=== PATIENT | female | born 1990 | race African-American/Black ===

== ENCOUNTER 2016-08-24 14:25 | Emergency (ER) | payer MEDICARE, OTHER ==
[~2016-08-24] VITALS: Ht 167.6 cm; Wt 58.0 kg
[~2016-08-24 14:25] MED LIST: PRED10 PO; SULF500T9 PO; TYLE3 PO
[2016-08-24 14:27] VITALS: BP 133/90; PULSE 99; RESP 20; TEMP 98.3; O2SAT 97
--- NOTE | 2016-08-24 14:41 | PD ---
HPI Chief Complaint: Lump, Cyst, Hernia Time Seen by Provider: 14:35 Travel History International Travel<30 days: No Contact w/Intl Traveler<30days: No Traveled to known affect area: No History of Present Illness HPI 26 year old female presents to the buttocks. Symptoms started 4 days ago. Pain is a throbbing pain that is constant worse when sitting. She had a similar issue about 9 months ago. Denies any drainage, fevers or chills. She has no other complaints at this time. PFSH Past Medical History Anemia: Yes Arthritis: Yes (RA) Autoimmune Disease: Yes (RHEUMATOID ARTHRITIS) Diminished Hearing: No Integumentary: Yes (PSORIASIS) Immunizations Current: Yes LMP: 08/21/16 : 1 : 1 Social History Alcohol Use: No Tobacco Use: No Substance Use: No Allergies-Medications (Allergen,Severity, Reaction): Coded Allergies: No Known Allergies (Verified , 08/24/16) Reported Meds & Prescriptions Reported Meds & Active Scripts Active Ibuprofen 800 Mg Tab 800 Mg PO Q6HR PRN Bactrim DS (Sulfamethoxazole-Trimethoprim) 800-160 Mg Tab 1 Tab PO BID 10 Days Keflex (Cephalexin) 500 Mg Cap 500 Mg PO Q6H 10 Days Deltasone (Prednisone) 10 Mg Tab 10 Mg PO DAILY Reported Tylenol #3 (Acetaminophen/Codeine Phosphate) 300 Mg/30 Mg Tab 1 Tab PO Q4-6HPRN FOR PAIN Sulfazine (Sulfasalazine) 500 Mg Tab 500 Mg PO BID Review of Systems General / Constitutional: No: Fever, Chills Gastrointestinal: No: Nausea, Vomiting, Abdominal Pain Musculoskeletal: No: Pain Skin: Positive Other (soft tissue swelling, pain, denies drainage) Data Data Last Documented VS Vital Signs Date Time Temp Pulse Resp B/P Pulse Ox O2 Delivery O2 Flow Rate FiO2 08/24/16 14:27 98.3 99 20 133/90 97 Room Air Orders Wound Culture And Gram Stain (08/24/16 14:50) Lidocaine 1% Inj (50 Ml) (Xylocaine 1% I (08/24/16 15:00) MDM Scripts Ibuprofen 800 Mg [id number] Mg PO Q6HR PRN (PAIN) #30 TAB Ref 0 Prov:Izzy Foss JANITOR HELPER 08/24/16 Sulfamethoxazole-Trimethoprim (Bactrim DS)800-160 Mg Tab1 Tab PO BID 10 Days Ref 0 Prov:Izzy Foss 08/24/16 Cephalexin (Keflex)500 Mg [id number] Mg PO Q6H 10 Days Ref 0 Prov:Izzy Foss 08/24/16 Dannie Whaley Aug 24, 2016 14:41
--- NOTE | 2016-08-24 14:50 | PD ---
HPI Chief Complaint: Lump, Cyst, Hernia Time Seen by Provider: 14:50 Travel History International Travel<30 days: No Contact w/Intl Traveler<30days: No Traveled to known affect area: No History of Present Illness HPI 26-year-old female presents to the emergency Department with complaint of a pain to her mid upper buttocks 4 days. Pain is constant and throbbing and worse with sitting. She has similar symptoms about 9 months ago and was seen at [facility]. She says they cut open area and drained it. Denies fever, chills, nausea, vomiting. Has not taken any medications or treatments to alleviate her symptoms. No known relieving factors. She has no other medical complaints at this time. History of rheumatoid arthritis. No known allergies. No other modifying factors or associated signs and symptoms. PFSH Past Medical History Anemia: Yes Arthritis: Yes (RA) Autoimmune Disease: Yes (RHEUMATOID ARTHRITIS) Diminished Hearing: No Integumentary: Yes (PSORIASIS) Immunizations Current: Yes LMP: 08/21/16 : 1 : 1 Social History Alcohol Use: No Tobacco Use: No Substance Use: No Allergies-Medications (Allergen,Severity, Reaction): Coded Allergies: No Known Allergies (Verified , 08/24/16) Reported Meds & Prescriptions Reported Meds & Active Scripts Active Ibuprofen 800 Mg Tab 800 Mg PO Q6HR PRN Bactrim DS (Sulfamethoxazole-Trimethoprim) 800-160 Mg Tab 1 Tab PO BID 10 Days Keflex (Cephalexin) 500 Mg Cap 500 Mg PO Q6H 10 Days Deltasone (Prednisone) 10 Mg Tab 10 Mg PO DAILY Reported Tylenol #3 (Acetaminophen/Codeine Phosphate) 300 Mg/30 Mg Tab 1 Tab PO Q4-6HPRN FOR PAIN Sulfazine (Sulfasalazine) 500 Mg Tab 500 Mg PO BID Review of Systems Except as stated in HPI: all other systems reviewed are Neg Physical Exam Narrative GENERAL: Well-nourished, well-developed female patient, in no acute distress SKIN: There is an indurated area to the coccyx area which measures about 2 cm in diameter. It is fluctuant but there is no pointing or drainage. There is a zone of inflammation around it but no lymphangitis. HEAD: Atraumatic. Normocephalic. EYES: Pupils equal and round. No scleral icterus. No injection or drainage. ENT: Mucosa pink and moist. Airway patent. NECK: Trachea midline. CARDIOVASCULAR: Regular rate. RESPIRATORY: No accessory muscle use. GASTROINTESTINAL: Flat. MUSCULOSKELETAL: No obvious deformities. No clubbing. No cyanosis. No edema. NEUROLOGICAL: Awake and alert. Oriented 3. No obvious cranial nerve deficits. Motor grossly within normal limits. Normal speech. PSYCHIATRIC: Appropriate mood and affect; insight and judgment normal. Data Data Last Documented VS Vital Signs Date Time Temp Pulse Resp B/P Pulse Ox O2 Delivery O2 Flow Rate FiO2 08/24/16 14:27 98.3 99 20 133/90 97 Room Air Orders Wound Culture And Gram Stain (08/24/16 14:50) Lidocaine 1% Inj (50 Ml) (Xylocaine 1% I (08/24/16 15:00) [facility] Medical Decision Making Medical Screen Exam Complete: Yes Emergency Medical Condition: Yes Medical Record Reviewed: Yes Differential Diagnosis Infected cyst, abscess, Narrative Course 26-year-old female physical exam consistent with an infected pilonidal cyst. Patient is afebrile. She denies fever, chills, nausea, vomiting. See my procedure note for incision and drainage. Instructed patient to return to the emergency department or follow-up with primary care in 48 hours for packing removal.She verbalized understanding and agreement with treatment plan. Keflex , Bactrim, ibuprofen prescribed for home. Patient is medically cleared and stable for discharge. Discussed reasons to return to the emergency department. Instructed patient to follow up with primary care provider. Patient agrees with treatment plan. The patients vital signs are stable and the patient is stable for outpatient follow-up and treatment. Patient discharged home, stable and in no acute distress. Procedures Procedure Narrative INCISION AND DRAINAGE OF ABSCESS: The area was prepped and was sterilely draped. A subcutaneous wheal of 1 % Xylocaine with a total number 3 mL was used to anesthetize the area properly. A number 11 scalpel was used to make a 1 -cm incision across the area of the abscess. The abscess was drained, complex loculations were broken down, and irrigated with normal saline. Cultures were obtained. Quarter inch iodoform packing was placed in the wound. Sterile dressing applied. Patient advised to have packing removed in two days. Diagnosis Primary Impression: Infected pilonidal cyst Referrals: Primary Care Physician Patient Instructions: Abscess (ED), Abscess Follow-up (ED), Abscess Incision and Drainage (ED), General Instructions, Pilonidal Cyst (ED) Departure Forms: Tests/Procedures, Work Release Enter return to work date: Aug 27, 2016 Additional Instructions: Complete full course of antibiotics Warm compresses to the affected area Keep area clean and dry Ibuprofen or Tylenol as directed and as needed for pain and inflammation Follow-up with primary care provider Return to emergency department immediately with worsening of symptoms Med/Other Pt SpecificInfo: Prescription(s) given Scripts Ibuprofen 800 Mg [id number] Mg PO Q6HR PRN (PAIN) #30 TAB Ref 0 Prov:Izzy Foss 08/24/16 Sulfamethoxazole-Trimethoprim (Bactrim DS)800-160 Mg Tab1 Tab PO BID 10 Days Ref 0 Prov:Izzy Foss 08/24/16 Cephalexin (Keflex)500 Mg [id number] Mg PO Q6H 10 Days Ref 0 Prov:Izzy Foss 08/24/16 Disposition: 01 DISCHARGE HOME Condition: Stable Izzy Foss Aug 24, 2016 14:50
[2016-08-24] MEDS ORDERED: IBUP800T23 PO (14:53)
[2016-08-24] MEDS ORDERED: BACT800T5 PO (14:53)
[2016-08-24] MEDS ORDERED: CEPH-460 PO (14:53)
[2016-08-24] MEDS ORDERED: LIDOCAINE HCL 1% 50 ML VIAL INFIL ONE (15:00)
[2016-08-24] MEDS ORDERED: IBUPROFEN 800 MG TAB PO ONE (15:30)
== END 2016-08-24 15:46 | disposition home or self-care (01) ==
LOC: NEPB 14:25
DX: L05.01 Pilonidal cyst with abscess (principal); M06.9 Rheumatoid arthritis, unspecified; Z87.2 Personal history of diseases of the skin and subcutaneous tissue; Z86.2 Personal history of diseases of the blood and blood-forming organs and certain disorders involving the immune mechanism
CPT/HCPCS: 10061; 87070

== ENCOUNTER 2017-01-12 14:30 | Emergency (ER) | payer MEDICARE, OTHER ==
[~2017-01-12] VITALS: Ht 167.6 cm; Wt 59.0 kg
[~2017-01-12 14:30] MED LIST changes: +BACT800T5 PO; +CEPH-460 PO; +IBUP800T23 PO
[2017-01-12 14:31] VITALS: BP 122/77; PULSE 98; RESP 20; TEMP 98.8; O2SAT 98
--- NOTE | 2017-01-12 14:39 | PD ---
Physical Exam Time Seen by Provider: 14:33 Narrative 26yo F c/o abscess to L axillae for over a week. Denies fever, vomiting. Had abscess to R axillae that was I&D at [facility] last Sunday and she just finished Bactrim yesterday. At the time the abscess to L axillae was too small to be drained and was told the Bactrim may help. She does say the L axillae abscess is less red and sore from taking the Bactrim. Patient seen in triage. VS reviewed. Awaiting bed placement. Data Data Last Documented VS Vital Signs Date Time Temp Pulse Resp B/P Pulse Ox O2 Delivery O2 Flow Rate FiO2 01/12/17 14:31 98.8 98 20 122/77 98 Room Air MDM Supervised Visit with JAMES: Izzy Suarez Jan 12, 2017 14:39
[2017-01-12] MEDS ORDERED: LIDOCAINE 1%/EPINEPHrine 1:100,000 SOLN 20 ML VIAL INFIL ONE (14:45)
--- NOTE | 2017-01-12 14:48 | PD ---
HPI Chief Complaint: Skin Problem Time Seen by Provider: 14:44 Travel History International Travel<30 days: No Contact w/Intl Traveler<30days: No Traveled to known affect area: No History of Present Illness HPI 26-year-old female presents to the emergency department for evaluation of left axillary abscess for 5 days. Patient states that 10 days ago she was seen at [facility] for a right axillary abscess incision and drainage and was placed on Bactrim for 7 days. States that at that time she had a very small firm lump in her left axilla that she had hoped would respond to the antibiotics. States that her left axilla continued to get larger and more fluctuant despite taking the antibiotics however states it is less painful. States that her right axillary abscess has completely resolved. She denies any fever, chills, nausea, vomiting, discharge or drainage, red streaks. PFSH Past Medical History Anemia: Yes Arthritis: Yes (RA) Autoimmune Disease: Yes (RHEUMATOID ARTHRITIS) Diminished Hearing: No Integumentary: Yes (PSORIASIS) Immunizations Current: Yes ?: Not : 1 : 1 Social History Alcohol Use: No Tobacco Use: No Substance Use: No Allergies-Medications (Allergen,Severity, Reaction): Coded Allergies: No Known Allergies (Verified , 01/12/17) Reported Meds & Prescriptions Reported Meds & Active Scripts Active Clindamycin (Clindamycin HCl) 300 Mg Cap 300 Mg PO TID 10 Days Ibuprofen 800 Mg Tab 800 Mg PO Q6HR PRN Bactrim DS (Sulfamethoxazole-Trimethoprim) 800-160 Mg Tab 1 Tab PO BID 10 Days Keflex (Cephalexin) 500 Mg Cap 500 Mg PO Q6H 10 Days Deltasone (Prednisone) 10 Mg Tab 10 Mg PO DAILY Reported Tylenol #3 (Acetaminophen/Codeine Phosphate) 300 Mg/30 Mg Tab 1 Tab PO Q4-6HPRN FOR PAIN Sulfazine (Sulfasalazine) 500 Mg Tab 500 Mg PO BID Review of Systems Except as stated in HPI: all other systems reviewed are Neg Physical Exam Narrative GENERAL: Well-nourished and well-developed female patient in no acute distress who is nontoxic appearing. SKIN: Warm and dry. 2.5 cm raised fluctuant mass to the left axilla, mild erythema. No surrounding erythema or warmth. No lymphangitis. HEAD: Normocephalic and atraumatic. EYES: No injection, drainage, or hyphema noted. PERRLA. EOMI. ENT: No nasal drainage noted. Oropharynx is clear. NECK: Supple and the trachea is midline. CARDIOVASCULAR: Regular rate and rhythm. RESPIRATORY: Breath sounds are equal bilaterally with no accessory muscle use, wheezing, rhonchi, or crackles. MUSCULOSKELETAL: No obvious deformities, swelling, cyanosis, or ecchymosis is present throughout the upper and lower extremities. Patient has full range of motion without any signs of neurovascular compromise. NEUROLOGICAL: Awake, alert, and oriented. Normal speech and gait. Cranial nerves are grossly intact. Data Data Last Documented VS Vital Signs Date Time Temp Pulse Resp B/P Pulse Ox O2 Delivery O2 Flow Rate FiO2 01/12/17 14:31 98.8 98 20 122/77 98 Room Air Orders Wound Culture And Gram Stain (01/12/17 14:43) Lidocai-Epi 1%-1:100,000 Inj (Xylocaine- (01/12/17 14:45) MDM Medical Decision Making Medical Screen Exam Complete: Yes Emergency Medical Condition: Yes Differential Diagnosis Simple abscess versus cellulitis versus cyst versus folliculitis Narrative Course 26-year-old female presents to the emergency department for evaluation of left axillary abscess. Patient is afebrile, vital signs are stable. She was recently on Bactrim for a right axillary abscess status post I&D. Left axillary abscess will have I&D performed today, see procedure narrative. Patient will be discharged with prescription for clindamycin. Discussed proper wound care techniques. Advised to have packing removed in 2 days. Patient verbalizes understanding and agreement with treatment plan. Procedures Procedure Narrative After the risks and benefits were discussed the following procedure was performed: INCISION AND DRAINAGE OF ABSCESS: The area was prepped and was sterilely draped. A subcutaneous wheal of 1 % Xylocaine with a total number 4 mL was used to anesthetize the area. The area was properly anesthetized. A number 11 scalpel was used to make a 1 -cm incision across the area of the abscess. Purulence was expelled. Cultures were obtained. The abscess was drained an irrigated with normal saline. Quarter inch iodoform packing was placed in the wound. Sterile dressing applied. Patient advised to have packing removed in two days. Diagnosis Primary Impression: Abscess of left axilla Referrals: Primary Care Physician Patient Instructions: Abscess (ED), Abscess Incision and Drainage (ED), General Instructions Additional Instructions: Apply warm compresses. Take medication as prescribed with food and a full glass of water. Follow-up with your Primary Care Physician. Return to the ED for any acute worsening of symptoms. Med/Other Pt SpecificInfo: Prescription(s) given Scripts Clindamycin 300 Mg [id number] Mg PO TID 10 Days Ref 0 Prov:Harvinder Foster MD 01/12/17 Disposition: 01 DISCHARGE HOME Condition: Stable Izzy Delacruz Jan 12, 2017 14:48
[2017-01-12] MEDS ORDERED: CLIN1CAP6 PO (14:49)
[2017-01-12] MEDS ORDERED: PRED10 PO (15:29)
== END 2017-01-12 15:39 | disposition home or self-care (01) ==
LOC: NEPK 14:30
DX: L02.412 Cutaneous abscess of left axilla (principal); D64.9 Anemia, unspecified; M06.9 Rheumatoid arthritis, unspecified; Z79.899 Other long term (current) drug therapy; Z79.82 Long term (current) use of aspirin
CPT/HCPCS: 10061; 86403; 87070; 87186

== ENCOUNTER 2017-02-06 14:43 | Emergency (ER) | payer MEDICARE, OTHER ==
[~2017-02-06] VITALS: Ht 167.6 cm; Wt 60.0 kg
[~2017-02-06 14:43] MED LIST changes: -BACT800T5 PO; -CEPH-460 PO; +CLIN1CAP6 PO; -IBUP800T23 PO; -SULF500T9 PO; -TYLE3 PO
[2017-02-06 14:45] VITALS: BP 120/78; PULSE 83; RESP 18; TEMP 99; O2SAT 100
== END 2017-02-06 17:22 | disposition left against medical advice (07) ==
LOC: NED 14:43
DX: R10.9 Unspecified abdominal pain (principal); N93.9 Abnormal uterine and vaginal bleeding, unspecified; Z53.21 Procedure and treatment not carried out due to patient leaving prior to being seen by health care provider
CPT/HCPCS: 99281

== ENCOUNTER → 2017-03-14 | Outpatient (CLI) | payer BC, MEDICARE, OTHER ==
--- NOTE | 2017-03-15 12:59 | EKG ---
Date Performed: 03/14/2017 Time Performed: 12:50:01 PTAGE: 26 years EKG: Sinus rhythm NORMAL ECG PREVIOUS TRACING : 06/23/2003 19.17 DOCTOR: Kevin Jarvis Interpretating Date/Time 03/15/2017 12:51:24
== END ==
LOC: CPRE 12:17
PROVIDERS: ATTEND Obstetrics & Gynecology
DX: Z01.810 Encounter for preprocedural cardiovascular examination (principal); Z01.812 Encounter for preprocedural laboratory examination; N92.0 Excessive and frequent menstruation with regular cycle; N94.6 Dysmenorrhea, unspecified; R19.09 Other intra-abdominal and pelvic swelling, mass and lump
CPT/HCPCS: 93005

== ENCOUNTER → 2017-03-16 | Day surgery (SDC) | payer BC, MEDICARE, OTHER ==
[~2017-03-16] VITALS: Ht 167.6 cm; Wt 56.7 kg
[~2017-03-16] MED LIST changes: +ACETAMINOPHEN 1000 MG/100 ML 100 ML IV ONE; +ACETAMINOPHEN 1000 MG/100 ML VIAL IV SCH; +APREPITANT 40 MG CAP ONE; +BUPIVACAINE/EPINEPHRINE 0.25% 50 ML VIAL ONE; +CHLORHEXIDINE GLUCONATE 2 % 1 PACK (2 CLOTHS) TOPICAL PRN; -CLIN1CAP6 PO; +DO NOT ADM ANY ANTICOAGULANT DRUGS PRN; +FAMOTIDINE 20 MG/2 ML VIAL ONE; +INSULIN HUMAN REGULAR 1,000 UNITS/10 ML VIAL SQ PRN; +KETOROLAC TROMETHAMINE 60 MG/2 ML (IM) VIAL IM ONE; +LACTATED RINGER'S 1000 ML IV PRN; +METOCLOPRAMIDE HCL 10 MG/2 ML VIAL IV PRN; +METOPROLOL TARTRATE 25 MG TAB PO PRN; +MIDAZOLAM HCL 2 MG/2 ML VIAL IV ONE; +NEOSTIGMINE 3 MG/3 ML SYR IV ONE; +ONDANSETRON HCL 4 MG/2 ML VIAL IV PUSH ONE; +POVIDONE IODINE 5% (ANTISEPSIS KIT) 4 APPLICATIONS EACH NARE PRN; +PROPOFOL 200 MG/20 ML AMP IV ONE; +SODIUM CHLORID 0.9% 500 ML IV PRN; +ceFAZolin 1,000 MG/NS 100 ML IV SCH; +oxyCODONE/ACETAMINOPHEN 5 MG/325 MG TAB PO PRN
--- NOTE | 2017-03-16 08:35 | MH ---
cc: EMERITA ELDER MD DATE OF ADMISSION 03/16/2017 DATE OF 05/04/1994 ADMISSION DIAGNOSIS Menorrhagia, dysmenorrhea with adnexal masses. HISTORY OF PRESENT ILLNESS The patient is a 26-year-old single black female para 0-0-1-0, began her cycle on 02/05/2017 early and began passing large clots of blood per vagina with excessively dysmenorrhea. Her laboratory studies included a normal CBC and beta titer was negative for . A vaginal ultrasound showed a normal-appearing uterus with ovarian mass on the midline. In view of these findings she is now admitted for surgical evaluation. PAST MEDICAL HISTORY Previous surgery none. MEDICATIONS 1. Vitamins. 2. Prednisone. ALLERGIES None. TRANSFUSIONS None. PAST MEDICAL ILLNESS History of rheumatoid arthritis age 15 with psoriasis age 18. OBSTETRICAL HISTORY One ETP age 19. SOCIAL HISTORY She works at [employer]. Alcohol occasional. Tobacco none. Drugs none. FAMILY HISTORY Noncontributory. PHYSICAL EXAMINATION GENERAL: A well-nourished, well-developed black female. VITAL SIGNS: Stable. HEENT: Exam is normal. CHEST: Clear HEART: Regular rate. BREASTS: The breasts are symmetrical. ABDOMEN: Benign. PELVIC EXAMINATION: Normal external genitalia and BUS. Vagina is normal. Cervix normal. Uterus normal size, shape. Adnexa nonpalpable. ASSESSMENT/PLAN As above. She is now admitted for an outpatient hysteroscopy, D&C and laparoscopy. While in the office I explained the procedures, the risks and benefits, complications and possible need for additional surgery pending findings. Emerita Elder MD JAW/EO /5:33 PM /8:27 AM
[2017-03-16 09:50] VITALS: BP 115/68; PULSE 55; RESP 18; TEMP 97; O2SAT 99
--- NOTE | 2017-03-16 17:16 | MP ---
cc: EMERITA ELDER DATE OF SURGERY 03/16/17 PREOPERATIVE DIAGNOSIS Menorrhagia, dysmenorrhea with bilateral adnexal masses. POSTOPERATIVE DIAGNOSIS Menorrhagia, dysmenorrhea with right peritubal mass, bilateral adnexal adhesions, bilateral hydrosalpinx and pelvic adhesions. PROCEDURE Hysteroscopy, D&C and diagnostic laparoscopy. ANESTHESIA General ET SURGEON Mag Elder MD METER SHOP SUPERVISOR Gisselle Alba ESTIMATED BLOOD LOSS Less than 20 mL FLUIDS 0.5 liter crystalloid. OBJECTIVE FINDINGS Following induction of adequate general endotracheal anesthesia, the patient was prepped and draped supine on the operating table dorsal lithotomy position usual sterile fashion with the bladder being drained via catheterization. Exam under anesthesia revealed a normal size and shape mid retroverted uterus with a cystic mass on the right. Heavy weighted speculum was placed in the posterior fornix of the vagina. The anterior lip of the cervix grasped with single tooth tenaculum. Cervix and uterus sounded to 8 cm. Cervix dilated with a #18 Hanks dilator. Hysteroscope was passed, revealed normal endocervix, normal endometrium. Hysteroscope was withdrawn. Endocervical curetting was obtained with a small serrated curette and endometrium with a small sharp curette. HUMI was then placed. The other vaginal instruments were removed. Regulatory Affairs Portfolio Leader's gloves were changed. The abdomen was opened through a 0.5 cm umbilical incision. A five port was placed followed by laparoscope attached to a cam. A second five in left lower quadrant. Pelvic contents revealed a uterus that was normal, size, shape, retroverted. There were adhesions of the sigmoid to the fundus posteriorly. The left ovary was slightly cystic. There was a calcified appearing mass at the end of the left tube about 2 cm. The tube was clubbed, had a salpinx. On the right, the ovary was more normal in size. Also that tube showed hydrosalpinx and was closed. The appendix was normal. Liver edge was normal. The inspection of the port sites no bleeding. Scope was now removed, gas allowed to escape. Each port site was injected with 5 mL of Marcaine 0.25% with epinephrine and then closed with subcuticular Monocryl. The HUMI removed vagina. The patient was taken out of stirrups. She was awaken and taken to the recovery room in good condition. MD KARIE Archer /8:11 AM /5:05 PM SHANT
== END | disposition home or self-care (01) ==
LOC: HSDC 05:38
PROVIDERS: ATTEND Obstetrics & Gynecology
DX: N92.0 Excessive and frequent menstruation with regular cycle (principal); N94.6 Dysmenorrhea, unspecified; N70.11 Chronic salpingitis; M06.9 Rheumatoid arthritis, unspecified; L40.9 Psoriasis, unspecified; Z01.810 Encounter for preprocedural cardiovascular examination; Z01.818 Encounter for other preprocedural examination
CPT/HCPCS: 00952; 49320; 58558; 88305; 93005; J0131; J0690; J1885; J2250; J2405; J2710; J3010; J7120; J8501

== ENCOUNTER 2017-05-28 09:22 | Emergency (ER) | payer MEDICARE, BC, MEDICAID ==
[~2017-05-28] VITALS: Ht 167.6 cm; Wt 57.0 kg
[~2017-05-28 09:22] MED LIST changes: -ACETAMINOPHEN 1000 MG/100 ML 100 ML IV ONE; -ACETAMINOPHEN 1000 MG/100 ML VIAL IV SCH; -APREPITANT 40 MG CAP ONE; -BUPIVACAINE/EPINEPHRINE 0.25% 50 ML VIAL ONE; -CHLORHEXIDINE GLUCONATE 2 % 1 PACK (2 CLOTHS) TOPICAL PRN; -DO NOT ADM ANY ANTICOAGULANT DRUGS PRN; -FAMOTIDINE 20 MG/2 ML VIAL ONE; -INSULIN HUMAN REGULAR 1,000 UNITS/10 ML VIAL SQ PRN; -KETOROLAC TROMETHAMINE 60 MG/2 ML (IM) VIAL IM ONE; -LACTATED RINGER'S 1000 ML IV PRN; -METOCLOPRAMIDE HCL 10 MG/2 ML VIAL IV PRN; -METOPROLOL TARTRATE 25 MG TAB PO PRN; -MIDAZOLAM HCL 2 MG/2 ML VIAL IV ONE; -NEOSTIGMINE 3 MG/3 ML SYR IV ONE; -ONDANSETRON HCL 4 MG/2 ML VIAL IV PUSH ONE; -POVIDONE IODINE 5% (ANTISEPSIS KIT) 4 APPLICATIONS EACH NARE PRN; -PROPOFOL 200 MG/20 ML AMP IV ONE; -SODIUM CHLORID 0.9% 500 ML IV PRN; -ceFAZolin 1,000 MG/NS 100 ML IV SCH; -oxyCODONE/ACETAMINOPHEN 5 MG/325 MG TAB PO PRN
[2017-05-28 09:23] VITALS: BP 129/64; PULSE 82; RESP 18; TEMP 98.8; O2SAT 99
[2017-05-28 09:40] VITALS: BP 109/74; PULSE 79; RESP 15; TEMP 98.5; O2SAT 99
[2017-05-28] MEDS ORDERED: BACT800T5 PO (09:41)
[2017-05-28] MEDS ORDERED: CEPH-460 PO (09:41)
[2017-05-28 09:42] VITALS: BP 109/74; PULSE 79; RESP 15; TEMP 98.5; O2SAT 99
--- NOTE | 2017-05-28 09:46 | PD ---
HPI Chief Complaint: abscess Time Seen by Provider: 09:36 Travel History International Travel<30 days: No Contact w/Intl Traveler<30days: No Traveled to known affect area: No History of Present Illness HPI 27-year-old Afro-Mexican female presents the emergency department with a tender swollen area in the right upper medial buttock over the past 3 days. Patient states she has a history of pilonidal cysts in the past. She denies fever, chills, or spontaneous drainage. She is requesting a trial of antibiotics rather than I&D. Patient is currently 6 out of 10. She has had I& D in the past and would not like to do that today. She has a history of MRSA. [facility] Past Medical History Anemia: Yes Arthritis: Yes (RA) Autoimmune Disease: Yes (RHEUMATOID ARTHRITIS) Cancer: No Cardiovascular Problems: No Diabetes: No Diminished Hearing: No Endocrine: No Genitourinary: No Hepatitis: No Hiatal Hernia: No Immune Disorder: Yes (RA) Musculoskeletal: Yes (RA) Neurologic: No Psychiatric: No Reproductive: No Respiratory: No Integumentary: Yes (PSORIASIS) Immunizations Current: Yes Thyroid Disease: No : 1 : 1 Past Surgical History AICD: No Joint Replacement: No Pacemaker: No Social History Alcohol Use: No Tobacco Use: No Substance Use: No Allergies-Medications (Allergen,Severity, Reaction): Coded Allergies: *MDRO Multi-Drug Resistant Organism (Verified Adverse Reaction, Unknown, ) MRSA (arm) 01/12/17 Reported Meds & Prescriptions Reported Meds & Active Scripts Active Reported Prednisone 10 Mg Tab 5 Mg PO DAILY Review of Systems Except as stated in HPI: all other systems reviewed are Neg General / Constitutional: No: Fever Eyes: No: Visual changes HENT: No: Headaches Cardiovascular: No: Chest Pain or Discomfort Respiratory: No: Shortness of Breath Gastrointestinal: No: Abdominal Pain Genitourinary: No: Dysuria Musculoskeletal: No: Pain Skin: Positive Lesions (early abscess. See history of present illness), No Rash Neurologic: No: Weakness Psychiatric: No: Depression Endocrine: No: Polydipsia Hematologic/Lymphatic: No: Easy Bruising Physical Exam Narrative GENERAL: Patient is in no acute distress. Ambulatory to the room. SKIN: Warm and dry. Normal Color. Normal turgor. Patient's buttock region is examined with nursing staff in room. Patient has a small tender indurated region to the right upper medial buttock without erythema or pointing. HEAD: Atraumatic. Normocephalic. EYES: Pupils equal and round. No scleral icterus. No injection or drainage. ENT: No nasal bleeding or discharge. Mucous membranes pink and moist. Pharynx is clear. Airway is patent. NECK: Trachea midline. Supple. VASCULAR: Regular rate and rhythm. No murmurs gallops or rubs RESPIRATORY: No accessory muscle use. Clear to auscultation. Breath sounds equal bilaterally. MUSCULOSKELETAL: Extremities without clubbing, cyanosis, or edema. No obvious deformities. NEUROLOGICAL: Awake and alert. No obvious cranial nerve deficits. Motor grossly within normal limits. Five out of 5 muscle strength in the arms and legs. Normal speech. PSYCHIATRIC: Appropriate mood and affect; insight and judgment normal. Data Data Last Documented VS Vital Signs Date Time Temp Pulse Resp B/P (MAP) Pulse Ox O2 Delivery O2 Flow Rate FiO2 05/28/17 09:23 98.8 82 18 129/64 (85) 99 MDM Medical Decision Making Medical Screen Exam Complete: Yes Emergency Medical Condition: Yes Differential Diagnosis Pilonidal cyst. Cellulitis. Early abscess. Narrative Course Discussed treatment options with the patient including I&D versus oral antibiotics and patient was adamant about just antibiotic treatment. Patient will be given Bactrim DS twice a day 7 days. Patient also given Keflex 500 mg 3 times a day 7 days. Patient can take [id number] ibuprofen and Tylenol as needed. Patient is recommended to use hot compresses to the area follow up with symptoms are not improving or worsening as needed. Diagnosis Primary Impression: Abscess of right buttock Referrals: Primary Care Physician Patient Instructions: Cellulitis (ED) Additional Instructions: Discussed treatment options with the patient including I&D versus oral antibiotics and patient was adamant about just antibiotic treatment. Patient will be given Bactrim DS twice a day 7 days. Patient also given Keflex 500 mg 3 times a day 7 days. Patient can take [id number] ibuprofen and Tylenol as needed. Patient is recommended to use hot compresses to the area follow up with symptoms are not improving or worsening as needed. Med/Other Pt SpecificInfo: Prescription(s) given Scripts Sulfamethoxazole-Trimethoprim (Bactrim DS) 800-160 Mg Tab 1 TAB PO BID for Infection, #14 TAB 0 Refills Prov: Emily Peoples MD 05/28/17 Cephalexin (Keflex) 500 Mg Capsule 500 MG PO Q8H for Infection for 7 Days, #21 CAP 0 Refills Prov: Emily Peoples MD 05/28/17 Disposition: 01 DISCHARGE HOME Condition: Stable Francisco Dominique May 28, 2017 09:46
== END 2017-05-28 10:03 | disposition home or self-care (01) ==
LOC: NEPD 09:22
DX: L02.31 Cutaneous abscess of buttock (principal); D64.9 Anemia, unspecified; M06.9 Rheumatoid arthritis, unspecified; Z79.899 Other long term (current) drug therapy
CPT/HCPCS: 99284

== ENCOUNTER 2017-06-01 15:29 | Emergency (ER) | payer MEDICARE, BC ==
[~2017-06-01] VITALS: Ht 167.6 cm; Wt 60.0 kg
[2017-06-01 15:31] VITALS: BP 126/58; PULSE 79; RESP 14; TEMP 98.9; O2SAT 100
--- NOTE | 2017-06-01 16:10 | PD ---
HPI Chief Complaint: Dizziness Time Seen by Provider: 16:00 Travel History International Travel<30 days: No Contact w/Intl Traveler<30days: No Traveled to known affect area: No History of Present Illness HPI 27-year-old female presents to emergency department complaining of lightheadedness upon standing. States that this is occurred multiple times this year with occasional loss of consciousness that lasted less than 10 seconds. Patient states that she has never been injured as a result of these falls but is concerned this is a serious condition. Her symptoms occur upon standing it lasts for a couple seconds and go away. Patient states that her lightheadedness is not exacerbated by movement of the head. Patient states she works at [employer] and has worked more than normal recently. Patient has a history of rheumatoid arthritis and is taking prednisone daily. She is not been on methotrexate for approximately one year because she has been trying to conceive with her significant other. Patient states she was here approximately one week ago for an abscess on her buttocks and received antibiotic. Patient otherwise denies recent illness. Patient states that she eats and drinks "normally". Denies fever, chills, chest pain, shortness of breath, cough, visual changes, nausea, vomiting, diarrhea. PFSH Past Medical History Anemia: Yes Arthritis: Yes (RA) Autoimmune Disease: Yes (RHEUMATOID ARTHRITIS) Cancer: No Cardiovascular Problems: No Diabetes: No Diminished Hearing: No Endocrine: No Genitourinary: No Hepatitis: No Hiatal Hernia: No Immune Disorder: Yes (RA) Musculoskeletal: Yes (RA) Neurologic: No Psychiatric: No Reproductive: No Respiratory: No Integumentary: Yes (PSORIASIS) Immunizations Current: Yes Thyroid Disease: No ?: Not LMP: 05/26/17 : 1 : 1 Dilation and Curettage (D&C): Yes Past Surgical History AICD: No Joint Replacement: No Pacemaker: No Social History Alcohol Use: No Tobacco Use: No Substance Use: No Allergies-Medications (Allergen,Severity, Reaction): Coded Allergies: *MDRO Multi-Drug Resistant Organism (Verified Adverse Reaction, Unknown, 05/28/17) MRSA (arm) 01/12/17 Reported Meds & Prescriptions Reported Meds & Active Scripts Active Reported Prednisone 10 Mg Tab 5 Mg PO DAILY Review of Systems Except as stated in HPI: all other systems reviewed are Neg Physical Exam Narrative GENERAL: Well-developed well-nourished in no apparent distress, and her [employer] uniform SKIN: Focused skin assessment warm/dry. HEAD: Atraumatic. Normocephalic. EYES: Pupils equal and round. No scleral icterus. No injection or drainage. EOMI. no nystagmus ENT: No nasal bleeding or discharge. Mucous membranes pink and moist. Tympanic membranes intact nonbulging nonerythematous NECK: Trachea midline. No JVD. No lymphadenopathy CARDIOVASCULAR: Regular rate and rhythm. No murmur appreciated. RESPIRATORY: No accessory muscle use. Clear to auscultation. Breath sounds equal bilaterally. GASTROINTESTINAL: Abdomen soft, non-tender, nondistended. MUSCULOSKELETAL: No obvious deformities. No clubbing. No cyanosis. No edema. NEUROLOGICAL: Awake and alert. No obvious cranial nerve deficits. Motor grossly within normal limits. Normal speech. Cerebellar movements intact. PSYCHIATRIC: Appropriate mood and affect; insight and judgment normal. Data Data Last Documented VS Vital Signs Date Time Temp Pulse Resp B/P (MAP) Pulse Ox O2 Delivery O2 Flow Rate FiO2 06/01/17 18:00 06/01/17 16:15 77 15 85 15 06/01/17 15:31 98.9 100 Orders Orders Ed Urine Pregnancytest Poc (06/01/17 16:10) Urinalysis - C+S If Indicated (06/01/17 16:10) Orthostatic Vital Signs (06/01/17 16:10) Complete Blood Count With Diff (06/01/17 16:28) Blood Glucose (06/01/17 16:28) Ed Discharge Order (06/01/17 17:37) Labs Laboratory Tests Test 06/01/17 16:30 06/01/17 16:35 Urine Color LIGHT-YELLOW Urine Turbidity CLEAR Urine pH 6.0 Urine Specific Pierce 1.007 Urine Protein NEG mg/dL Urine Glucose (UA) NEG mg/dL Urine Ketones NEG mg/dL Urine Occult Blood NEG Urine Nitrite NEG Urine Bilirubin NEG Urine Urobilinogen LESS THAN 2.0 MG/DL Urine Leukocyte Esterase TRACE Urine WBC 1 /hpf Urine Squamous Epithelial Cells 3 /hpf Microscopic Urinalysis Comment CULT NOT INDICATED White Blood Count 15.5 TH/MM3 Red Blood Count 4.64 MIL/MM3 Hemoglobin 12.4 GM/DL Hematocrit 38.8 % Mean Corpuscular Volume 83.6 FL Mean Corpuscular Hemoglobin 26.7 PG Mean Corpuscular Hemoglobin Concent 32.0 % Red Cell Distribution Width 16.0 % Platelet Count 205 TH/MM3 Mean Platelet Volume 9.6 FL Neutrophils (%) (Auto) 75.3 % Lymphocytes (%) (Auto) 18.1 % Monocytes (%) (Auto) 6.0 % Eosinophils (%) (Auto) 0.2 % Basophils (%) (Auto) 0.4 % Neutrophils # (Auto) 11.7 TH/MM3 Lymphocytes # (Auto) 2.8 TH/MM3 Monocytes # (Auto) 0.9 TH/MM3 Eosinophils # (Auto) 0.0 TH/MM3 Basophils # (Auto) 0.1 TH/MM3 CBC Comment DIFF FINAL Differential Comment MDM Medical Decision Making Medical Screen Exam Complete: Yes Emergency Medical Condition: Yes Differential Diagnosis Dehydration versus unspecified dizziness versus poor nutrition Narrative Course 27-year-old female presents to emergency department complaining of lightheadedness upon standing. States that this is occurred multiple times this year with occasional loss of consciousness that lasted less than 10 seconds. Patient states that she has never been injured as a result of these falls but is concerned this is a serious condition. Her symptoms occur upon standing it lasts for a couple seconds and go away. Patient states that her lightheadedness is not exacerbated by movement of the head. Patient states she works at [employer] and has worked more than normal recently. Patient has a history of rheumatoid arthritis and is taking prednisone daily. She is not been on methotrexate for approximately one year because she has been trying to conceive with her significant other. Patient states she was here approximately one week ago for an abscess on her buttocks and received antibiotic. Patient otherwise denies recent illness. Patient states that she eats and drinks "normally". Denies fever, chills, chest pain, shortness of breath, cough, visual changes, nausea, vomiting, diarrhea. Vital signs stable Physical exam essentially unremarkable. WBCs elevated. Patient takes prednisone daily, chronic history of rheumatoid arthritis. No anemia present today. Urine-noncontributory Orthostatic-negative [id number] blood glucose 78. Given Gatorade. Successful PO Challenge. Pt feels better. Advised patient to follow up with her primary care physician regarding this condition. Pt understands and will comply. Diagnosis Primary Impression: Positional lightheadedness Referrals: Primary Care Physician Additional Instructions: Ensure adequate fluid intake and nutritious diet Follow-up with her regular physician within 2-3 days. Disposition: 01 DISCHARGE HOME Condition: Stable Blanka Barrientos Jun 01, 2017 16:10
[2017-06-01 16:15] VITALS: BP_SYST 118; BP_SYST 122; BP_DIAS 76; BP_DIAS 87; RESP 15
--- NOTE | 2017-06-01 16:30 | PD ---
Physical Exam Date Seen by Provider: Jun 01, 2017 Time Seen by Provider: 16:20 Narrative This patient presents complaining with frequent dizzy spells. Her dizzy spells tend to occur when she stands. She reports a history of rheumatoid arthritis. She states that she sees her doctor every 3 months but has not mentioned the dizzy spells to her doctor. Data Data Last Documented VS Vital Signs Date Time Temp Pulse Resp B/P (MAP) Pulse Ox O2 Delivery O2 Flow Rate FiO2 06/01/17 15:31 98.9 79 14 126/58 (80) 100 Orders Orders Ed Urine Pregnancytest Poc (06/01/17 16:10) Urinalysis - C+S If Indicated (06/01/17 16:10) Orthostatic Vital Signs (06/01/17 16:10) MDM Supervised Visit with JAMES: Yes Narrative Course I, Dr. Bryson, have reviewed the advance practice practitioner's documentation and am in agreement, met with the patient face to face, made the diagnosis, and the medical decision making was done by me. *My assessment and Findings: This patient ambulates without difficulty. She is smiling and in no distress. Evaluation has been discussed with IMMANUEL Hernandez. Please see Blanka Barrientos PA-C's note for further details, lab and radiology results, final diagnosis and disposition. Referrals: Primary Care Physician Additional Instruction: Ensure adequate fluid intake and nutritious diet Follow-up with her regular physician within 2-3 days. Disposition: 01 DISCHARGE HOME Condition: Stable Maritza Bryson MD Jun 01, 2017 16:30
[2017-06-01 16:49] LABS: AUTOMATED NEUTROPHIL # 11.7 TH/MM3 (1.8-7.7); BASOPHIL # 0.1 TH/MM3 (0-0.2); BASOPHIL % 0.4 % (0.0-2.0); EOSINOPHIL % 0.2 % (0.0-4.0); HEMATOCRIT 38.8 % (35.0-46.0); HEMO FLAGS DIFF FINAL; LYMPH % 18.1 % (9.0-44.0); LYMPHOCYTE # 2.8 TH/MM3 (1.0-4.8); MEAN CELL VOLUME 83.6 FL (80.0-100.0); MEAN CORPUSCULAR HEMOGLOBIN 26.7 PG (27.0-34.0); NEUT % 75.3 % (16.0-70.0); PLATELET COUNT 205 TH/MM3 (150-450); RED BLOOD COUNT 4.64 MIL/MM3 (4.00-5.30); WHITE BLOOD COUNT 15.5 TH/MM3 (4.0-11.0)
[2017-06-01 17:05] LABS: BLOOD, URINE NEG (NEG); COMMENT (UR) CULT NOT INDICATED; CULTURE IF INDICATED CULT NOT INDICATED; GLUCOSE,URINE NEG (NEG); KETONE, URINE NEG (NEG); NITRITE,URINE NEG (NEG); SQUAMOUS EPITHELIAL CELL URINE 3 /hpf (0-5); URINE COLOR LIGHT-YELLOW (YELLW/STRAW)
== END 2017-06-01 18:04 | disposition home or self-care (01) ==
LOC: NEPD 15:29
DX: R42 Dizziness and giddiness (principal); M06.9 Rheumatoid arthritis, unspecified; Z79.899 Other long term (current) drug therapy
CPT/HCPCS: 81001; 84703; 85025; 99283

== ENCOUNTER 2017-08-01 18:50 | Emergency (ER) | payer BC, MEDICARE ==
[~2017-08-01] VITALS: Ht 167.6 cm; Wt 56.8 kg
[2017-08-01 18:53] VITALS: BP 137/95; PULSE 80; RESP 16; TEMP 98.2; O2SAT 95
--- NOTE | 2017-08-01 21:42 | PD ---
Physical Exam Date Seen by Provider: Aug 01, 2017 Time Seen by Provider: 19:35 Narrative 27 year old female presents to the emergency department for possible infection to her right anterior knee for 4 days. She states she had a pustule to it which she popped. She now is having worsening erythema and pain. No fevers. No history of IVDU. Data Data Last Documented VS Vital Signs Date Time Temp Pulse Resp B/P (MAP) Pulse Ox O2 Delivery O2 Flow Rate FiO2 08/01/17 18:53 98.2 80 16 137/95 (109) 95 Orders Orders Complete Blood Count With Diff (08/01/17 19:04) Basic Metabolic Panel (Bmp) (08/01/17 19:04) MDM Supervised Visit with JAMES: No Narrative Course 27 year old female presents to the emergency department for evaluation of possible infection to her right knee. Patient is initially seen in triage. She left AMA before she could be moved to a medical bed. Diagnosis Primary Impression: Left against medical advice Disposition: 07 AGAINST MEDICAL ADVICE Sherin Franco Aug 01, 2017 21:42
== END 2017-08-01 19:35 | disposition left against medical advice (07) ==
LOC: NED 18:50
DX: L08.9 Local infection of the skin and subcutaneous tissue, unspecified (principal); Z53.21 Procedure and treatment not carried out due to patient leaving prior to being seen by health care provider
CPT/HCPCS: 99281

== ENCOUNTER 2017-08-04 05:57 | Inpatient (IN) | payer BC, MEDICARE ==
[~2017-08-04] VITALS: Ht 167.6 cm; Wt 60.2 kg
[2017-08-04 05:58] VITALS: BP 124/82; PULSE 86; RESP 16; TEMP 98.2; O2SAT 99
--- NOTE | 2017-08-04 06:29 | PD ---
HPI Chief Complaint: Skin Problem Time Seen by Provider: 06:12 Travel History International Travel<30 days: No Contact w/Intl Traveler<30days: No Traveled to known affect area: No History of Present Illness HPI 27-year-old black female presents emergency Department with complaints of a painful red swollen right knee. She states that this started off earlier in the week as a small pimple. She states that she had come in to the ER the night before but there was a several hour wait and she opted to go home. She states that the pimple popped squeeze pus out. Since then has become increasingly red, swollen and painful. Patient has a history of rheumatoid arthritis and takes 5 mg of prednisone daily. She denies any fever or chills. She states the pain is moderate. Worse with palpation and movement. No alleviating factors. Exacerbated by palpation and movement. PFSH Past Medical History Narrative Medical Rheumatoid arthritis, MRSA Anemia: Yes Arthritis: Yes (RA) Autoimmune Disease: Yes (RHEUMATOID ARTHRITIS) Cancer: No Cardiovascular Problems: No Diabetes: No Diminished Hearing: No Endocrine: No Genitourinary: No Hepatitis: No Hiatal Hernia: No Immune Disorder: Yes (RA) Musculoskeletal: Yes (RA) Neurologic: No Psychiatric: No Reproductive: No Respiratory: No Integumentary: Yes (PSORIASIS) Immunizations Current: Yes Thyroid Disease: No Tetanus Vaccination: < 5 Years Influenza Vaccination: No ?: Not LMP: 07/20/16 : 1 : 1 Dilation and Curettage (D&C): Yes Past Surgical History Surgical History: No Previous Surgery AICD: No Joint Replacement: No Pacemaker: No Other Surgery: No Social History Alcohol Use: No Tobacco Use: No Substance Use: No Allergies-Medications (Allergen,Severity, Reaction): Coded Allergies: *MDRO Multi-Drug Resistant Organism (Verified Adverse Reaction, Unknown, 05/28/17) MRSA (arm) 01/12/17 Reported Meds & Prescriptions Reported Meds & Active Scripts Active Reported Prednisone 10 Mg Tab 5 Mg PO DAILY Review of Systems General / Constitutional: No: Fever Eyes: No: Visual changes HENT: No: Headaches Cardiovascular: No: Chest Pain or Discomfort Respiratory: No: Shortness of Breath Gastrointestinal: No: Abdominal Pain Genitourinary: No: Dysuria Musculoskeletal: Positive: Arthralgias, Limited ROM, Edema, Pain Skin: Positive Rash, Positive Lumps Neurologic: No: Weakness Psychiatric: No: Depression Endocrine: No: Polydipsia Hematologic/Lymphatic: No: Easy Bruising Physical Exam Narrative GENERAL: Well-developed, well-nourished in no acute distress. Nontoxic appearing. HEAD: Normocephalic, atraumatic. EYES: Pupils equal round and reactive. Extraocular motions intact. No scleral icterus. No injection or drainage. ENT: TMs clear without erythema. The external auditory canals clear. Nose: clear . Posterior pharynx is pink and moist. No tonsillar edema or exudate. Uvula midline. Airway patent. NECK: Trachea midline.Supple, nontender, moves head freely. No central bony tenderness or spasm. CARDIOVASCULAR: Regular rate and rhythm without murmurs, gallops, or rubs. RESPIRATORY: Clear to auscultation. Breath sounds equal bilaterally. No wheezes , rales, or rhonchi. GASTROINTESTINAL: Abdomen soft, non-tender, nondistended. No hepato-splenomegaly , or palpable masses. No guarding. EXTREMITIES: No clubbing, cyanosis. Examination of the right lower extremity reveals swelling of the knee. She has a area of induration just below the kneecap. It is erythematous, warm and tender. There is some mild fluctuance but no pointing. There is mild discomfort with flexion-extension of the knee. She has limited flexion due to pain. There is no pain in the hip, ankle or foot. She has intact sensation with good distal pulses. BACK: Nontender without deformity or crepitance. No flank tenderness. Data Data Last Documented VS Vital Signs Date Time Temp Pulse Resp B/P (MAP) Pulse Ox O2 Delivery O2 Flow Rate FiO2 08/04/17 05:58 98.2 86 16 124/82 (96) 99 Room Air Orders Orders Complete Blood Count With Diff (08/04/17 06:17) Basic Metabolic Panel (Bmp) (08/04/17 06:17) Blood Culture (08/04/17 06:17) Wound Culture And Gram Stain (08/04/17 06:17) Iv Access Insert/Monitor (08/04/17 06:17) Fentanyl Inj (Fentanyl Inj) (08/04/17 06:30) Piperacil-Tazo 4.5 Gm Premix (Zosyn 4.5 (08/04/17 06:30) Vancomycin Inj (Vancomycin Inj) (08/04/17 06:30) MDM Medical Decision Making Medical Screen Exam Complete: Yes Emergency Medical Condition: Yes Medical Record Reviewed: Yes Differential Diagnosis MDM: High Differential diagnoses: Abscess, folliculitis, cellulitis, lymphangitis, abrasion, contact dermatitis Narrative Course Patient is immunocompromised. She stakes prednisone 5 mg daily. She has rheumatoid arthritis. History of MRSA in the past. Patient has a large area of cellulitis and abscess to the right knee. IV access is obtained. She is given 1 g of vancomycin IV, Zosyn 4.5 g IV, routine laboratory tests including CBC, chemistry, blood culture and wound culture. An incision or drainage will be performed. Diagnosis Primary Impression: right knee abscess with cellulitis Condition: Stable Richard Duvall Aug 04, 2017 06:29
[2017-08-04] MEDS ORDERED: VANCOMYCIN 1 GM/200 ML INJ 200 ML IV ONE (06:30)
[2017-08-04] MEDS ORDERED: PIPERACIL-TAZO 4.5 GM PREMIX 100 ML IV ONE (06:30)
[2017-08-04 06:45] LABS: AUTOMATED NEUTROPHIL # 13.1 TH/MM3 (1.8-7.7); BASOPHIL # 0.1 TH/MM3 (0-0.2); BASOPHIL % 0.4 % (0.0-2.0); EOSINOPHIL # 0.1 TH/MM3 (0-0.4); EOSINOPHIL % 0.3 % (0.0-4.0); HEMATOCRIT 37.2 % (35.0-46.0); HEMOGLOBIN 11.9 GM/DL (11.6-15.3); LYMPH % 16.8 % (9.0-44.0); LYMPHOCYTE # 2.9 TH/MM3 (1.0-4.8); MEAN CELL VOLUME 84.7 FL (80.0-100.0); MEAN CORPUSCULAR HGB CONC 31.9 % (32.0-36.0); MEAN PLATELET VOLUME 9.2 FL (7.0-11.0); MONO % 6.4 % (0.0-8.0); MONOCYTE # 1.1 TH/MM3 (0-0.9); NEUT % 76.1 % (16.0-70.0); PLATELET COUNT 216 TH/MM3 (150-450); RED BLOOD COUNT 4.39 MIL/MM3 (4.00-5.30); WHITE BLOOD COUNT 17.2 TH/MM3 (4.0-11.0)
[2017-08-04 07:24] LABS: BICARBONATE 29.4 MEQ/L (21.0-32.0); CALCIUM 8.3 MG/DL (8.5-10.1); CREATININE 0.43 MG/DL (0.50-1.00)
--- NOTE | 2017-08-04 07:40 | PD ---
Physical Exam Date Seen by Provider: Aug 04, 2017 Time Seen by Provider: 07:37 Narrative I resumed care of patient from Richard Duvall PA-C, awaiting incision and drainage and admission for cellulitis/abscess of the right anterior knee. GENERAL: Well-nourished, well-developed female patient, afebrile. SKIN: Focused skin assessment warm/dry. Patient has diffuse erythema to the right anterior knee just below the kneecap. She does have an area of fluctuance to the right anterior knee. She has pain with flexion and extension of the right knee. HEAD: Normocephalic. EYES: No scleral icterus. No injection or drainage. NECK: Supple, trachea midline. No JVD or lymphadenopathy. CARDIOVASCULAR: Regular rate and rhythm without murmurs, gallops, or rubs. RESPIRATORY: Breath sounds equal bilaterally. No accessory muscle use. Lungs sounds are clear to auscultation GASTROINTESTINAL: Abdomen soft, non-tender, nondistended. MUSCULOSKELETAL: No cyanosis, or edema. Patient has limited flexion due to pain. BACK: Nontender without obvious deformity. No CVA tenderness. Data Data Last Documented VS Vital Signs Date Time Temp Pulse Resp B/P (MAP) Pulse Ox O2 Delivery O2 Flow Rate FiO2 08/04/17 05:58 98.2 86 16 124/82 (96) 99 Room Air Orders Orders Complete Blood Count With Diff (08/04/17 06:17) Basic Metabolic Panel (Bmp) (08/04/17 06:17) Blood Culture (08/04/17 06:17) Wound Culture And Gram Stain (08/04/17 06:17) Iv Access Insert/Monitor (08/04/17 06:17) Fentanyl Inj (Fentanyl Inj) (08/04/17 06:30) Piperacil-Tazo 4.5 Gm Premix (Zosyn 4.5 (08/04/17 06:30) Vancomycin Inj (Vancomycin Inj) (08/04/17 06:30) Admit Order (Ed Use Only) (08/04/17 08:15) Labs Laboratory Tests Test 08/04/17 06:25 White Blood Count 17.2 TH/MM3 Red Blood Count 4.39 MIL/MM3 Hemoglobin 11.9 GM/DL Hematocrit 37.2 % Mean Corpuscular Volume 84.7 FL Mean Corpuscular Hemoglobin 27.0 PG Mean Corpuscular Hemoglobin Concent 31.9 % Red Cell Distribution Width 15.0 % Platelet Count 216 TH/MM3 Mean Platelet Volume 9.2 FL Neutrophils (%) (Auto) 76.1 % Lymphocytes (%) (Auto) 16.8 % Monocytes (%) (Auto) 6.4 % Eosinophils (%) (Auto) 0.3 % Basophils (%) (Auto) 0.4 % Neutrophils # (Auto) 13.1 TH/MM3 Lymphocytes # (Auto) 2.9 TH/MM3 Monocytes # (Auto) 1.1 TH/MM3 Eosinophils # (Auto) 0.1 TH/MM3 Basophils # (Auto) 0.1 TH/MM3 CBC Comment DIFF FINAL Differential Comment Blood Urea Nitrogen 14 MG/DL Creatinine 0.43 MG/DL Random Glucose 89 MG/DL Calcium Level 8.3 MG/DL Sodium Level 141 MEQ/L Potassium Level 3.6 MEQ/L Chloride Level 107 MEQ/L Carbon Dioxide Level 29.4 MEQ/L Anion Gap 5 MEQ/L Estimat Glomerular Filtration Rate 213 ML/MIN MDM Supervised Visit with JAMES: No Differential Diagnosis Abscess versus cellulitis versus septic joint versus sepsis Narrative Course 27-year-old female presents to the emergency department for evaluation diffuse erythema, abscess to right anterior knee. CBC shows leukocytosis 17.2. BMP shows no acute abnormality. Patient was given Zosyn, vancomycin by previous provider. Incision and drainage is completed. [facility] is paged for admission. Procedures Procedure Narrative INCISION AND DRAINAGE OF ABSCESS: The area was prepped and was sterilely draped. A subcutaneous wheal of 2% Xylocaine with epinephrine with a total number 3 mL was used to anesthetize the area. The area was properly anesthetized. A number 11 scalpel was used to make a 1 -cm incision across the area of the abscess. Cultures were obtained. The abscess was drained an irrigated with normal saline. Quarter inch iodoform packing was placed in the wound. Sterile dressing applied. Patient advised to have packing removed in two days. Diagnosis Primary Impression: right knee abscess with cellulitis Admitting Information Admitting Physician Requests: Sherin Hannah Aug 04, 2017 07:40
[2017-08-04] MEDS ORDERED: ONDANSETRON HCL 4 MG/2 ML VIAL IV PUSH ONE (08:30)
[2017-08-04] MEDS ORDERED: MORPHINE SULFATE 2 MG/ML INJ IV PUSH ONE (08:30)
[2017-08-04] MEDS ORDERED: LACTULOSE SYRUP 20 GM/30 ML CUP PO PRN (10:15)
[2017-08-04] MEDS ORDERED: ACETAMINOPHEN 325 MG TAB PO PRN (10:15)
[2017-08-04] MEDS ORDERED: NALOXONE HCL 0.4 MG/ML AMP IV PUSH PRN (10:15)
[2017-08-04] MEDS ORDERED: BISACODYL 10 MG SUPP RECTAL PRN (10:15)
[2017-08-04] MEDS ORDERED: SENNOSIDES 8.6 MG TAB PO PRN (10:15)
[2017-08-04] MEDS ORDERED: Vancomycin Consult Pharmacy 1 EA OTHER SCH (10:15)
[2017-08-04] MEDS ORDERED: VANCOMYCIN 1 GM/200 ML INJ 200 ML IV SCH (10:15)
[2017-08-04] MEDS ORDERED: MAGNESIUM HYDROXIDE SUSP 30 ML CUP PO PRN (10:15)
[2017-08-04 13:30] VITALS: BP 122/80; PULSE 84; RESP 18; TEMP 98; O2SAT 98
[2017-08-04] MEDS: PIPERACIL-TAZO 4.5 GM PREMIX 100 ML IV SCH ×2 (15:00→23:12)
[2017-08-04] MEDS: MORPHINE SULFATE 2 MG/ML INJ IV PUSH PRN ×2 (15:02→21:01)
[2017-08-04 16:00] VITALS: BP 100/60; PULSE 91; RESP 18; TEMP 99.7; O2SAT 99
[2017-08-04] MEDS: oxyCODONE/ACETAMINOPHEN 7.5 MG/325 MG TAB PO PRN (16:53)
[2017-08-04] MEDS: VANCOMYCIN INJ 750 MG in SODIUM CHLOR 0.9% 250 ML INJ 250 ML IV SCH (16:54)
--- NOTE | 2017-08-04 18:35 | HHI.HP ---
HPI Service [facility] Hospitalists Primary Care Physician No Primary Care Physician Admission Diagnosis right knee abscess/cellulitis Diagnoses: Chief Complaint: A full swollen right knee Travel History International Travel<30 Days: No Contact w/Intl Traveler <30 Da: No Traveled to Known Affected Are: No History of Present Illness Deferred entry - patient seen at 12:20 am This is a 27-year-old female with past medical history of rheumatoid arthritis and psoriasis currently on Rituxan twice a year and chronic prednisone who presented to [facility] complaining of right knee pain and swelling as well as warmth which started approximately 1 week ago. Patient states that initially she had a small pimple which started growing and becoming painful as well as warmth. The patient's states that she started noticing drainage of a thick secretion which initially was bloody. The patient states the pain in the right knee as throbbing and continuous, nonradiating, worsened by palpation and by moving the joint. The patient was in the emergency department and found to have an abscess in the right knee which was incised and drained by the emergency physician. The patient denies any fevers or chills, nausea, vomiting , abdominal pain Review of Systems As per history of present illness, other systems reviewed by me and negative. Past Family Social History Past Medical History 1. Rheumatoid arthritis. 2. Psoriasis. Past Surgical History D&C earlier this year in November Reported Medications Reported Meds & Active Scripts Active Reported Prednisone 10 Mg Tab 5 Mg PO DAILY Allergies: Coded Allergies: *MDRO Multi-Drug Resistant Organism (Verified Adverse Reaction, Unknown, 05/28/17) MRSA (arm) 01/12/17 Active Ordered Medications Current Medications Medications (Trade) Dose Ordered Sig/Mulu Route Start Time Stop Time Status Last Admin (fentaNYL INJ) 25 mcg STAT PRN IV PUSH 08/04/17 06:30 08/04/17 06:41 (NS Flush) 2 ml UNSCH PRN IV FLUSH 08/04/17 10:15 (NS Flush) 2 ml BID IV FLUSH 08/04/17 21:00 (Tylenol) 650 mg Q4H PRN PO 08/04/17 10:15 (Zofran Inj) 4 mg Q6H PRN IVP 08/04/17 10:15 (Narcan Inj) 0.4 mg UNSCH PRN IV PUSH 08/04/17 10:15 (Misty-Colace) 1 tab BID PO 08/04/17 21:00 (Milk Of Magnesia Liq) 30 ml Q12H PRN PO 08/04/17 10:15 (Senokot) 17.2 mg Q12H PRN PO 08/04/17 10:15 (Dulcolax Supp) 10 mg DAILY PRN RECTAL 08/04/17 10:15 (Lactulose Liq) 30 ml DAILY PRN PO 08/04/17 10:15 Pharmacy Profile Note 0 ml @ 0 mls/hr UNSCH OTHER 08/04/17 10:15 Piperacillin Sod/ Tazobactam Sod 100 ml @ 200 mls/hr Q8H IV 08/04/17 15:00 08/04/17 15:00 Vancomycin HCl 750 mg/Sodium Chloride 257.5 ml @ 250 mls/hr Q8H IV 08/04/17 16:00 08/04/17 16:54 Miscellaneous Information SPECIFIC LAB TO BE ASTRID... ONCE ONCE .XX 08/05/17 07:45 08/05/17 07:46 (Percocet 7.5-325 Mg) 1 tab Q4H PRN PO 08/04/17 14:45 08/04/17 16:53 (Morphine Inj) 2 mg Q4H PRN IV PUSH 08/04/17 14:45 08/04/17 15:02 Family History Patient's mother from hypertensive complications. Patient's father has hypertension. Social History The patient denies smoking, drinking alcohol. Admits to occasional use of marijuana. Physical Exam Vital Signs Vital Signs Date Time Temp Pulse Resp B/P (MAP) Pulse Ox O2 Delivery O2 Flow Rate FiO2 08/04/17 16:00 99.7 91 18 100/60 (73) 99 08/04/17 13:30 98.0 84 18 122/80 (94) 98 08/04/17 05:58 98.2 86 16 124/82 (96) 99 Room Air Physical Exam GENERAL: This is a well-nourished, well-developed patient, in no apparent distress. SKIN: No rashes, ecchymoses or lesions. Cool and dry. HEAD: Atraumatic. Normocephalic. No temporal or scalp tenderness. EYES: Pupils equal round and reactive. Extraocular motions intact. No scleral icterus. No injection or drainage. ENT: Nose without bleeding, purulent drainage or septal hematoma. Throat without erythema, tonsillar hypertrophy or exudate. Uvula midline. Airway patent. NECK: Trachea midline. No JVD or lymphadenopathy. Supple, nontender, no meningeal signs. CARDIOVASCULAR: Regular rate and rhythm without murmurs, gallops, or rubs. RESPIRATORY: Clear to auscultation. Breath sounds equal bilaterally. No wheezes , rales, or rhonchi. GASTROINTESTINAL: Abdomen soft, non-tender, nondistended. No hepato-splenomegaly , or palpable masses. No guarding. MUSCULOSKELETAL: Right knee is swollen, tender to palpation. Abscess is covered by dressing which has some purulent discharge. The rest of the right lower extremity adjacent to the knee is also swollen and warm than the rest of the extremity. The left lower extremity. Edema, good pulses in BL lower extremities. NEUROLOGICAL: Awake and alert. Cranial nerves II through XII intact. Motor and sensory grossly within normal limits. Five out of 5 muscle strength in all muscle groups. Normal speech. Laboratory Laboratory Tests Test 08/04/17 06:25 White Blood Count 17.2 Red Blood Count 4.39 Hemoglobin 11.9 Hematocrit 37.2 Mean Corpuscular Volume 84.7 Mean Corpuscular Hemoglobin 27.0 Mean Corpuscular Hemoglobin Concent 31.9 Red Cell Distribution Width 15.0 Platelet Count 216 Mean Platelet Volume 9.2 Neutrophils (%) (Auto) 76.1 Lymphocytes (%) (Auto) 16.8 Monocytes (%) (Auto) 6.4 Eosinophils (%) (Auto) 0.3 Basophils (%) (Auto) 0.4 Neutrophils # (Auto) 13.1 Lymphocytes # (Auto) 2.9 Monocytes # (Auto) 1.1 Eosinophils # (Auto) 0.1 Basophils # (Auto) 0.1 CBC Comment DIFF FINAL Differential Comment Blood Urea Nitrogen 14 Creatinine 0.43 Random Glucose 89 Calcium Level 8.3 Sodium Level 141 Potassium Level 3.6 Chloride Level 107 Carbon Dioxide Level 29.4 Anion Gap 5 Estimat Glomerular Filtration Rate 213 Date/Time Source Procedure Growth Status 08/04/17 06:25 Blood Peripheral Aerobic Blood Culture Pending Received 08/04/17 06:25 Blood Peripheral Anaerobic Blood Culture Pending Received 08/04/17 07:19 Wound Knee Gram Stain - Final Resulted 08/04/17 07:19 Wound Knee Wound Culture Pending Resulted Result Diagram: 08/04/1725 08/04/17624 Caprini VTE Risk Assessment Caprini VTE Risk Assessment: No/Low Risk (score <= 1) Caprini Risk Assessment Model Point Value = 1 Point Value = 2 Point Value = 3 Point Value = 5 Age 41-60 Minor surgery BMI > 25 kg/m2 Swollen legs Varicose veins or History of unexplained or recurrent spontaneous Oral contraceptives or hormone replacement Sepsis (< 1 month) Serious lung disease, including pneumonia (< 1 month) Abnormal pulmonary function Acute myocardial infarction Congestive heart failure (< 1 month) History of inflammatory bowel disease Medical patient at bed rest Age 61-74 Arthroscopic surgery Major open surgery (> 45 min) Laparoscopic surgery (> 45 min) Malignancy Confined to bed (> 72 hours) Immobilizing plaster cast Central venous access Age >= 75 History of VTE Family history of VTE Factor V Leiden Prothrombin [id number] Lupus anticoagulant Anticardiolipin antibodies Elevated serum homocysteine Heparin-induced thrombocytopenia Other congenital or acquired thrombophilia Stroke (< 1 month) Elective arthroplasty Hip, pelvis, or leg fracture Acute spinal cord injury (< 1 month) Prophylaxis Regimen Total Risk Factor Score Risk Level Prophylaxis Regimen 0-1 Low Early ambulation 2 Moderate Order ONE of the following: *Sequential Compression Device (SCD) *Heparin 5000 units SQ BID 3-4 Higher Order ONE of the following medications: *Heparin 5000 units SQ TID *Enoxaparin/Lovenox 40 mg SQ daily (WT < 150 kg, CrCl > 30 mL/min) *Enoxaparin/Lovenox 30 mg SQ daily (WT < 150 kg, CrCl > 10-29 mL/min) *Enoxaparin/Lovenox 30 mg SQ BID (WT < 150 kg, CrCl > 30 mL/min) AND/OR *Sequential Compression Device (SCD) 5 or more Highest Order ONE of the following medications: *Heparin 5000 units SQ TID (Preferred with Epidurals) *Enoxaparin/Lovenox 40 mg SQ daily (WT < 150 kg, CrCl > 30 mL/min) *Enoxaparin/Lovenox 30 mg SQ daily (WT < 150 kg, CrCl > 10-29 mL/min) *Enoxaparin/Lovenox 30 mg SQ BID (WT < 150 kg, CrCl > 30 mL/min) AND *Sequential Compression Device (SCD) Assessment and Plan Problem List: (1) Cellulitis and abscess of right lower extremity ICD Code: L03.115 - Cellulitis of right lower limb; L02.415 - Cutaneous abscess of right lower limb (2) Leukocytosis ICD Code: D72.829 - Elevated white blood cell count, unspecified (3) Rheumatoid arthritis Status: Chronic Assessment and Plan Admit the patient to medical floor. Will obtain a knee x ray - if fluid evident will order joint aspiration and consult orthopedic surgery. Patient was given IV vancomycin and IV Zosyn emergency department. Continue IV vancomycin IV Zosyn for now. Consult pharmacy to help with dosage and follow with the vancomycin trough. Will provide pain control with Percocet and IV morphine. Tylenol as needed for fever. Bowel regimen Monitor CBC with differential to follow leukocytosis. Continue prednisone 5 mg by mouth daily for rheumatoid arthritis. Code Status Full code Discussed Condition With Patient, RN, ED physician. Physician Certification 2 Midnight Certification Type: Admission for Inpatient Services Order for Inpatient Services The services are ordered in accordance with Medicare regulations or non- Medicare payer requirements, as applicable. In the case of services not specified as inpatient-only, they are appropriately provided as inpatient services in accordance with the 2-midnight benchmark. Estimated LOS (days): 2 days is the estimated time the patient will need to remain in the hospital, assuming treatment plan goals are met and no additional complications. Post-Hospital Plan: Home Problem Qualifiers (1) Leukocytosis: Qualified Codes: D72.829 - Elevated white blood cell count, unspecified Diego Montiel MD Aug 04, 2017 18:35
[2017-08-04 21:00] VITALS: BP 106/62; PULSE 90; RESP 16; TEMP 98.6; O2SAT 100
[2017-08-04] MEDS: DOCUSATE SODIUM 50 MG/SENNA 8.6 MG TAB PO SCH (21:00)
[2017-08-04] MEDS: SODIUM CHLORIDE 0.9% FLUSH 10 ML FLUSH IV FLUSH SCH (21:01)
[2017-08-04] MEDS: ONDANSETRON HCL 4 MG/2 ML VIAL IVP PRN (23:12)
[2017-08-05] VITALS: BP 105/67; PULSE 89; RESP 16; TEMP 98.1; O2SAT 100
[2017-08-05] MEDS: VANCOMYCIN INJ 750 MG in SODIUM CHLOR 0.9% 250 ML INJ 250 ML IV SCH ×4 (00:25→23:57)
[2017-08-05 05:15] VITALS: BP 99/61; PULSE 93; RESP 16; TEMP 98.6; O2SAT 100
[2017-08-05] MEDS: PIPERACIL-TAZO 4.5 GM PREMIX 100 ML IV SCH ×3 (06:16→21:45)
[2017-08-05] MEDS ORDERED: PHARMACY ORDERED LAB ONE (07:45)
[2017-08-05 08:00] VITALS: BP 105/53; PULSE 70; RESP 18; TEMP 99.1; O2SAT 100
[2017-08-05] MEDS: oxyCODONE/ACETAMINOPHEN 7.5 MG/325 MG TAB PO PRN ×2 (08:12→18:09)
[2017-08-05] MEDS: DOCUSATE SODIUM 50 MG/SENNA 8.6 MG TAB PO SCH ×2 (08:13→21:00)
[2017-08-05] MEDS: SODIUM CHLORIDE 0.9% FLUSH 10 ML FLUSH IV FLUSH SCH ×2 (08:13→21:56)
--- NOTE | 2017-08-05 10:43 | HHI.PR ---
Subjective Remarks Follow-up right knee infection. The patient states that it is less painful than it was before the incision and drainage was done. Still unable to bear weight on the right leg. She states that it becomes more painful when she is upright even if she is not putting weight on the right leg. There has been pustular drainage from the wound. Objective Vitals Vital Signs Date Time Temp Pulse Resp B/P (MAP) Pulse Ox O2 Delivery O2 Flow Rate FiO2 08/05/17 08:00 99.1 70 18 105/53 (70) 100 08/05/17 05:15 98.6 93 16 99/61 (74) 100 08/05/17 00:00 98.1 89 16 105/67 (80) 100 08/04/17 21:00 98.6 90 16 106/62 (77) 100 08/04/17 16:00 99.7 91 18 100/60 (73) 99 08/04/17 13:30 98.0 84 18 122/80 (94) 98 I/O 08/04/17 08/04/17 08/04/17 08/05/17 08/05/17 08/05/17 07:00 15:00 23:00 07:00 15:00 23:00 Intake Total 100 ml 1000 ml 1657 ml Balance 100 ml 1000 ml 1657 ml Intake Oral 1000 ml 1200 ml IV Total 100 ml 457 ml # Voids 1 3 # Bowel Movements 0 0 Result Diagram: 08/04/17 0625 08/04/17 0625 Objective Remarks Examined in presence of the nurse. General: No acute distress. Heart: Regular rate and rhythm. No murmur. Lungs: Clear to auscultation bilaterally. No wheezes, rales, or rhonchi. Breathing is nonlabored. Abdomen: Soft, nontender, nondistended. Extremities: No left lower extremity edema. There is swelling around the right knee with overlying erythema. There is an open wound with packing in place. There are tiny pustules lateral to the incision wound. Psych: Alert and oriented. Procedures 08/04/17 incision and drainage of abscess, right knee Urinary Catheter: No Vascular Central Line Catheter: No A/P Problem List: (1) Cellulitis and abscess of right lower extremity ICD Code: L03.115 - Cellulitis of right lower limb; L02.415 - Cutaneous abscess of right lower limb (2) Leukocytosis ICD Code: D72.829 - Elevated white blood cell count, unspecified (3) Rheumatoid arthritis Status: Chronic Assessment and Plan 1. Cellulitis/abscess, right knee: Status post incision and drainage in the ER. Wound culture is pending. Continue IV antibiotics. Consult orthopedic surgery for further evaluation. Check MRI of the knee to evaluate for extension of the abscess. 2. Leukocytosis: Likely secondary to infection, prednisone. Monitor labs. 3. Rheumatoid arthritis: Continue prednisone 5 mg daily. 4. DVT prophylaxis: SCDs. Problem Qualifiers (1) Leukocytosis: Qualified Codes: D72.829 - Elevated white blood cell count, unspecified Kadeem Rodrigues MD Aug 05, 2017 10:43
[2017-08-05 12:00] VITALS: BP 110/63; PULSE 80; RESP 18; TEMP 98; O2SAT 97
[2017-08-05] MEDS: MORPHINE SULFATE 2 MG/ML INJ IV PUSH PRN ×2 (12:40→21:47)
[2017-08-05 12:56] LABS: AUTOMATED NEUTROPHIL # 10.9 TH/MM3 (1.8-7.7); BASOPHIL % 0.1 % (0.0-2.0); EOSINOPHIL % 0.2 % (0.0-4.0); HEMATOCRIT 34.8 % (35.0-46.0); LYMPH % 11.9 % (9.0-44.0); LYMPHOCYTE # 1.6 TH/MM3 (1.0-4.8); MEAN CELL VOLUME 86.2 FL (80.0-100.0); MEAN CORPUSCULAR HEMOGLOBIN 27.2 PG (27.0-34.0); MEAN CORPUSCULAR HGB CONC 31.5 % (32.0-36.0); MEAN PLATELET VOLUME 9.3 FL (7.0-11.0); MONO % 5.9 % (0.0-8.0); MONOCYTE # 0.8 TH/MM3 (0-0.9); NEUT % 81.9 % (16.0-70.0); PLATELET COUNT 183 TH/MM3 (150-450); RED BLOOD COUNT 4.04 MIL/MM3 (4.00-5.30); RED CELL DISTRIBUTION WIDTH 14.8 % (11.6-17.2); WHITE BLOOD COUNT 13.3 TH/MM3 (4.0-11.0)
[2017-08-05 13:18] LABS: ALBUMIN 2.8 GM/DL (3.4-5.0); ALT (GPT) 11 U/L (10-53); AST (GOT) 12 U/L (15-37); BICARBONATE 28.9 MEQ/L (21.0-32.0); BLOOD UREA NITROGEN 5 MG/DL (7-18); CALCIUM 8.4 MG/DL (8.5-10.1); CHLORIDE 105 MEQ/L (98-107); CREATININE 0.44 MG/DL (0.50-1.00); GLOMERULAR FILTRATION RATE 208 ML/MIN (>89); GLUCOSE,RANDOM 85 MG/DL (74-106); SODIUM (NA) 140 MEQ/L (136-145)
[2017-08-05 13:20] LABS: ALKALINE PHOSPHATASE 66 U/L (45-117); TOTAL BILIRUBIN ADULT 0.6 MG/DL (0.2-1.0); TOTAL PROTEIN 6.9 GM/DL (6.4-8.2)
[2017-08-05] MEDS ORDERED: GADODIAMIDE PF 287 MG/ML 10 ML VIAL (for RAD MRI) IVCONTRAST ONE (13:37)
--- NOTE | 2017-08-05 14:12 | RADRPT ---
EXAM DATE/TIME: 08/05/2017 13:19 [place] COMPARISON: No previous studies available for comparison. INDICATIONS : Abscess. CONTRAST: 10 cc Omniscan (gadodiamide) IV MEDICAL HISTORY : Rheumatoid arthritis. Psoriasis. SURGICAL HISTORY : D&C ENCOUNTER: Initial ACUITY: 1 day PAIN SCORE: 4/10 LOCATION: Right knee. TECHNIQUE: Multiplanar multisequence MRI examination of the knee was performed with and without contrast. FINDINGS: CRUCIATE LIGAMENTS: Diffuse signal abnormality of the ACL indicating mucoid degeneration or chronic tear. PCL is intact. MENISCI: Marked attenuation of the menisci bilaterally indicating large complex degenerative type tear as or p rior partial meniscectomies. COLLATERAL LIGAMENTS: MCL and LCL complexes are intact. BONE/CARTILAGE: Large osteophytes of the medial and lateral orbits. Severe diffuse articular cartilage thinning of th e medial and lateral compartments. Severe subchondral reactive bony changes the medial and lateral de partment. 1.5 cm subchondral cyst of the central lateral femoral condyle. No focal bone erosion ident ified. Severe diffuse lateral patellofemoral compartment articular cartilage thinning. MISCELLANEOUS: Large joint effusion. Extensor mechanism intact. POST-CONTRAST: Diffuse nonspecific synovial enhancement on the postcontrast images. There is anterior cutaneous ulce ration over the patella/proximal patellar tendon. Surrounding diffuse anterior superficial soft tissu e edema and enhancement. No evidence of focal bone erosion or bone marrow signal abnormality associat ed with the area of ulceration. CONCLUSION: 1. Anterior skin irregularity/ulceration with associated soft tissue defect. No organized peripherall y enhancing fluid collection. Surrounding ill-defined soft tissue enhancement suggests cellulitis in the proper clinical setting. No evidence of osteomyelitis. 2. Severe arthrosis of the right knee. Findings may represent primary osteoarthritis or secondary ost eoarthritis with primary inflammatory arthritis. 3. Large joint effusion and nonspecific diffuse synovial enhancement. This finding can be seen with i nflammatory arthritis or osteoarthritis. Tk Clark MD on August 05, 2017 at 14:03 Board Certified Radiologist. This report was verified electronically.
[2017-08-05 16:04] VITALS: BP 107/67; PULSE 72; RESP 18; TEMP 99.3; O2SAT 99
[2017-08-05 21:40] VITALS: BP 115/55; PULSE 79; RESP 16; TEMP 99.1; O2SAT 100
[2017-08-06] VITALS: BP 118/60; PULSE 75; RESP 16; TEMP 98.8; O2SAT 100
[2017-08-06 04:30] VITALS: BP 100/59; PULSE 68; RESP 17; TEMP 98; O2SAT 100
[2017-08-06] MEDS: PIPERACIL-TAZO 4.5 GM PREMIX 100 ML IV SCH (06:30)
[2017-08-06] MEDS ORDERED: PHARMACY ORDERED LAB ONE (07:45)
[2017-08-06 08:00] VITALS: BP 113/65; PULSE 69; RESP 18; TEMP 98.8; O2SAT 98
[2017-08-06] MEDS: SODIUM CHLORIDE 0.9% FLUSH 10 ML FLUSH IV FLUSH SCH ×2 (08:00→20:53)
[2017-08-06] MEDS: DOCUSATE SODIUM 50 MG/SENNA 8.6 MG TAB PO SCH ×2 (08:00→20:53)
[2017-08-06] MEDS: VANCOMYCIN INJ 750 MG in SODIUM CHLOR 0.9% 250 ML INJ 250 ML IV SCH (08:00)
[2017-08-06] MEDS: MORPHINE SULFATE 2 MG/ML INJ IV PUSH PRN (08:00)
--- NOTE | 2017-08-06 08:02 | MB ---
cc: MISHA DUENAS DATE OF ADMISSION 08/04/2017 DATE OF CONSULTATION 08/06/2017 REASON FOR CONSULTATION Right knee infection. CONSULTING PHYSICIAN Dr. Miguel Angel Lei VAIBHAV Baker is a 27-year-old female who has a history of rheumatoid arthritis and psoriasis. She presented to the emergency room with an approximately one-week history of right anterior knee pain and swelling. She initially noticed a small red bump. It began getting larger and getting more red and warm. She presented to the emergency room on 08/04/2017. The small abscess was opened and packed in the emergency department. She was subsequently admitted for treatment of this. She states that the pain is significantly improving. She states that she frequently gets swelling of the right knee and right elbow. She states that her current swelling of the right knee is not abnormal for her. She states that the drainage has decreased over the past few days from the open wound. Her only complaint currently is her right knee. PAST MEDICAL HISTORY ILLNESSES Rheumatoid arthritis. Psoriasis. SURGERIES D&C. MEDICATIONS 1. Prednisone. 2. Rituxan. ALLERGIES No known drug allergies. SOCIAL HISTORY The patient denies alcohol, tobacco or drug use. She does use occasional marijuana. FAMILY HISTORY Positive for severe hypertension in her mother and father. REVIEW OF SYSTEMS The patient denies headache, visual changes, neck pain, chest pain, abdominal pain, nausea, vomiting, fevers or chills, recent weight loss or numbness or tingling of extremities. She complains of right knee redness, warmth, drainage and swelling. PHYSICAL EXAMINATION GENERAL: The patient is a thin 27-year-old female. She is awake and alert. She is in no acute distress. She appears well-developed and well-nourished. VITAL SIGNS: Temperature 98.0, pulse 68, respirations 17, blood pressure 100/59, O2 sat is 100% on room air. HEAD: The patient is normocephalic. Pupils are equal. NECK: Soft, nontender. Trachea is midline. ABDOMEN: Soft, nontender, nondistended. EXTREMITIES: Examination of the bilateral upper extremities reveals no significant pain with shoulder, elbow or wrist motion. She has intact sensation of all fingers. She has good capillary refill in all fingers. Radial pulses palpable. Skin is intact in both hands. Examination of left leg reveals no pain with hip, knee or ankle motion. Skin is intact. Dorsalis pedis pulse is palpable. Sensation is intact. Examination of the right leg reveals no pain with hip or ankle motion. The skin is intact on the right foot. Dorsalis pedis pulse is palpable. Examination of the right knee reveals a moderate knee effusion. There is no significant warmth. There is a 1 cm x 1 cm open wound over the anterior knee. There is a small amount of drainage present. Knee range of motion is from 0 to 90 degrees with minimal discomfort. She has minimal tenderness to palpation along the joint line of the knee. Her knee is stable to varus and valgus stresses. IMAGING STUDIES MRI of the right knee was reviewed. The patient does have a moderate-sized right knee effusion. She also has some skin abnormality around the area of open wound. There is no significant abscess noted. Ligaments of the knee appear to be intact. LABORATORY DATA Labs from 08/05/2017 reveal a white blood cell count of 13.3, hemoglobin 11.0, hematocrit of 34.8. BUN is 5 and creatinine is 0.44. IMPRESSIONS 1. Psoriasis. 2. Rheumatoid arthritis. 3. Right knee prepatellar bursitis. 4. Right knee effusion. PLAN The treatment options were discussed with the patient. At this point the patient does have an infection of her right knee prepatellar bursitis. At this point the wound is clean. It is draining appropriately. Her pain and swelling are significantly improved. She does have a knee effusion. She states that her current knee effusion is not unusual for her. She gets recurrent effusions of her knee secondary to her rheumatoid arthritis. Currently she has minimal pain with motion of her knee. Clinically she does not appear to have a septic arthritis of the knee itself. I would recommend continuation of antibiotics for the prepatellar bursitis infection. I will plan on nonsurgical treatment unless her symptoms regress and begin to worsen. The patient is in agreement with this plan. All questions were answered. MRI and lab results were reviewed. I will reevaluate the patient tomorrow morning to ensure that she is progressing appropriately. A mid-level provider in my office, nurse practitioner or PA, may see this patient on a follow-up basis and continue to implement the objective of this plan including: Starting or adjusting medications, injections of muscle, tendon, bursa or joints, cast application, orthotic or brace application, physical therapy, further radiographic studies including x-ray, MRI, CT, ultrasounds or bone scan, vascular studies, neurologic studies, or other specialist consultations, and proceeding with surgical management as appropriate. MD DERIK Blanton/ANSELMO /6:47 AM /7:47 AM
[2017-08-06] MEDS: SODIUM CHLORIDE 0.9% FLUSH 10 ML FLUSH IV FLUSH PRN (11:43)
[2017-08-06] MEDS: ONDANSETRON HCL 4 MG/2 ML VIAL IVP PRN ×2 (11:43→20:53)
[2017-08-06 12:12] VITALS: BP 117/74; PULSE 84; RESP 18; TEMP 99; O2SAT 99
--- NOTE | 2017-08-06 13:08 | PD.CONS ---
History of Present Illness Service Infectious disease Consult Requested By Dr Rodrigues Reason for Consult Evaluate patient with MRSA in the right knee wound Primary Care Physician No Primary Care Physician Diagnoses: History of Present Illness Patient seen and examined. Records reviewed. Patient is a 27-year-old female, presented to the hospital for evaluation of worsening pain, swelling and drainage from her right knee. Patient has had previous infection with skin abscesses, and she also has had MRSA in the past. She has had abscesses in the right axilla as well as in the right buttock probably in the last year. Her problems started about 5 days prior to admission when she developed a pimple on her right knee. Patient also has known rheumatoid arthritis, and it usually involves both elbows and her right knee. She has on and off swelling in her right knee. When she developed a pimple on her right knee, she apparently popped it. She went to the emergency room on August 01 but signed out AGAINST MEDICAL ADVICE. Her right knee started getting more swollen, and she started having increased pain, redness and drainage on her right knee. She has not had any episode of fever or chills. She denies any other problem as far as respiratory, urinary, or GI complaints. Since admission she has had some low-grade temps of about 99.8. MRI of the right knee shows evidence of knee effusion, and evidence of cellulitis on the anterior knee, with no findings of fluid collection. Culture of the open wound is now reported as growing MRSA. Orthopedic consultation has been requested also. Patient states she has no problem in flexion and extension of her right knee. She states she developed the abscess, she stated that the swelling on her knee has increased. Her initial WBC was 17,000, and it's down to 13,000. Infectious disease consultation has been requested to make recommendation regarding the positive MRSA in the culture. Review of Systems Constitutional: DENIES: Fever, Chills, Night Sweats Eyes: DENIES: Eye pain Ears, nose, mouth, throat: DENIES: Nasal discharge, Oral lesions, Throat pain, Ear Pain Respiratory: DENIES: Cough, Shortness of breath Cardiovascular: DENIES: Chest pain, Palpitations Gastrointestinal: DENIES: Abdominal pain, Constipation, Diarrhea, Nausea, Vomiting, Difficulty Swallowing Genitourinary: DENIES: Urinary frequency, Hematuria, Dysuria Musculoskeletal: COMPLAINS OF: Joint pain, Joint Swelling, DENIES: Muscle aches , Back pain, Neck pain Integumentary: DENIES: Pruritus, Rash Hematologic/lymphatic: DENIES: Lymphadenopathy Neurologic: DENIES: Headache Psychiatric: DENIES: Confusion Past Family Social History Allergies: Coded Allergies: *MDRO Multi-Drug Resistant Organism (Verified Adverse Reaction, Unknown, 05/28/17) MRSA (arm) 01/12/17 Past Medical History Rheumatoid arthritis Psoriasis Past Surgical History D and C, diagnostic laparoscopy Active Ordered Medications Current Medications Medications (Trade) Dose Ordered Sig/Mulu Route Start Time Stop Time Status Last Admin (fentaNYL INJ) 25 mcg STAT PRN IV PUSH 08/04/17 06:30 08/04/17 06:41 (NS Flush) 2 ml UNSCH PRN IV FLUSH 08/04/17 10:15 08/06/17 11:43 (NS Flush) 2 ml BID IV FLUSH 08/04/17 21:00 08/06/17 08:00 (Tylenol) 650 mg Q4H PRN PO 08/04/17 10:15 (Zofran Inj) 4 mg Q6H PRN IVP 08/04/17 10:15 08/06/17 11:43 (Narcan Inj) 0.4 mg UNSCH PRN IV PUSH 08/04/17 10:15 (Misty-Colace) 1 tab BID PO 08/04/17 21:00 08/06/17 08:00 (Milk Of Magnesia Liq) 30 ml Q12H PRN PO 08/04/17 10:15 (Senokot) 17.2 mg Q12H PRN PO 08/04/17 10:15 (Dulcolax Supp) 10 mg DAILY PRN RECTAL 08/04/17 10:15 (Lactulose Liq) 30 ml DAILY PRN PO 08/04/17 10:15 Pharmacy Profile Note 0 ml @ 0 mls/hr UNSCH OTHER 08/04/17 10:15 (Percocet 7.5-325 Mg) 1 tab Q4H PRN PO 08/04/17 14:45 08/05/17 18:09 (Morphine Inj) 2 mg Q4H PRN IV PUSH 08/04/17 14:45 08/06/17 08:00 Vancomycin HCl 900 mg/Sodium Chloride 259 ml @ 250 mls/hr Q8H IV 08/06/17 16:00 Miscellaneous Information SPECIFIC LAB TO BE DRAWN:VANCOMY... ONCE ONCE .XX 08/07/17 15:45 08/07/17 15:46 Family History Family Hx of hypertension Social History The patient denies smoking, drinking alcohol. Admits to occasional use of marijuana. No illicit IVDU Physical Exam Vital Signs Vital Signs Date Time Temp Pulse Resp B/P (MAP) Pulse Ox O2 Delivery O2 Flow Rate FiO2 08/06/17 12:12 99.0 84 18 117/74 (88) 99 08/06/17 08:00 98.8 69 18 113/65 (81) 98 08/06/17 04:30 98.0 68 17 100/59 (73) 100 08/06/17 00:00 98.8 75 16 118/60 (79) 100 08/05/17 21:40 99.1 79 16 115/55 (75) 100 08/05/17 16:04 99.3 72 18 107/67 (80) 99 Physical Exam GENERAL: Patient is a well-nourished, well-developed female, awake and alert , not in respiratory distress. SKIN: Warm and dry. No generalized rash, no ecchymoses and no evidence of embolic lesions. HEAD: Atraumatic. Normocephalic. No temporal wasting, or tenderness. EYES: [place] conjunctiva. No petechia or hemorrhage. Pupils equal, round and reactive to light. Extraocular movements full and intact. No scleral icterus. No injection or drainage. EARS, NOSE AND THROAT: Nose without bleeding or purulent nasal discharge. No sinus tenderness. Mucous membranes pink and moist. No oral lesions noted. No oral thrush. NECK: Trachea midline. Supple and not tender, no meningeal signs CARDIOVASCULAR: Regular rate and rhythm. No murmurs, rubs or gallops heard RESPIRATORY: Clear to auscultation. Breath sounds equal bilaterally. No rales , wheezing or rhonchi ABDOMEN: Soft, flat, non-tender, nondistended. Bowel sounds present and normoactive. No guarding. No rebound. No organomegaly. EXTREMITIES: No clubbing, cyanosis. Her R knee has effusion, and she full ROM in her R knee joint. There is an open wound on her anterior knee that is about 1.5 cm with surrounding induration and erythema, and has purulent drainage. The prepatellar bursa is edematous and indurated. No calf tenderness. Well perfused and warm. Rest of joints with good ROM NEUROLOGICAL: Awake and alert. Cranial nerves grossly intact. Motor grossly within normal limits. PSYCHIATRIC: Normal affect, calm and cooperative. LINE: No evidence of infection Laboratory Laboratory Tests Test 08/06/17 07:45 Vancomycin Level Trough 9.2 Date/Time Source Procedure Growth Status 08/04/17 06:25 Blood Peripheral Aerobic Blood Culture - Preliminary NO GROWTH IN 2 DAYS Resulted 08/04/17 06:25 Blood Peripheral Anaerobic Blood Culture - Preliminary NO GROWTH IN 2 DAYS Resulted 08/04/17 07:19 Wound Knee Gram Stain - Final Complete 08/04/17 07:19 Wound Culture - Final S. Aureus Mrsa Complete Result Diagram: 08/05/17 1230 08/05/17 1230 Imaging RADIOLOGY STUDIES/FILMS REVIEWED Knee MRI 08/05/17 0000 Signed Impressions: Service Date/Time: Saturday, August 05, 2017 13:19 - CONCLUSION: 1. Anterior skin irregularity/ulceration with associated soft tissue defect. No organized peripherally enhancing fluid collection. Surrounding ill-defined soft tissue enhancement suggests cellulitis in the proper clinical setting. No evidence of osteomyelitis. 2. Severe arthrosis of the right knee. Findings may represent primary osteoarthritis or secondary osteoarthritis with primary inflammatory arthritis. 3. Large joint effusion and nonspecific diffuse synovial enhancement. This finding can be seen with inflammatory arthritis or osteoarthritis. Tk Clark MD Assessment and Plan Assessment and Plan IMPRESSION Septic prepatellar bursitis, C/S with MRSA Has R knee effusion, clinically does not look septic joint, likely inflammatory from her known RA Known RA on Rituxan 2 x a year, and chronic prednisone RECOMMENDATION Continue IV vancomycin Monitor R knee - concern is development of septic knee The R knee bursa abscess seems to be draining adequately Will likely give course of IV Abx on D/C due to presence of knee effusion and concern with progression of the infection Ortho following as well May need to choose an alternative Abx on D/C, since she is currently getting q8H IV Vancomycin and that is not good choice for home infusion - may need Cubicin which is once a day - will get baseline CPK - when close to D/C, will ask CM to look at insurance coverage I will follow along with you Thank you for this consultation Discussed Condition With Explained plan to the patient D/W Dr Rodrigues (HEPAS) Annetta Lopez MD Aug 06, 2017 13:08
--- NOTE | 2017-08-06 14:58 | HHI.PR ---
Subjective Remarks Follow up right knee infection. Patient states that her pain is well controlled. Swelling is improving. She feels tired, but has no other complaints at this time. Objective Vitals Vital Signs Date Time Temp Pulse Resp B/P (MAP) Pulse Ox O2 Delivery O2 Flow Rate FiO2 08/06/17 12:12 99.0 84 18 117/74 (88) 99 08/06/17 08:00 98.8 69 18 113/65 (81) 98 08/06/17 04:30 98.0 68 17 100/59 (73) 100 08/06/17 00:00 98.8 75 16 118/60 (79) 100 08/05/17 21:40 99.1 79 16 115/55 (75) 100 08/05/17 16:04 99.3 72 18 107/67 (80) 99 I/O 08/05/17 08/05/17 08/05/17 08/06/17 08/06/17 08/06/17 07:00 15:00 23:00 07:00 15:00 23:00 Intake Total 1657 ml 1557.5 ml 1200 ml Balance 1657 ml 1557.5 ml 1200 ml Intake Oral 1200 ml 1200 ml 1200 ml IV Total 457 ml 357.5 ml # Voids 3 3 4 # Bowel Movements 0 0 0 Result Diagram: 08/05/17 1230 08/05/17 1230 Objective Remarks Examined in presence of the nurse. General: No acute distress. Heart: Regular rate and rhythm. No murmur. Lungs: Clear to auscultation bilaterally. No wheezes, rales, or rhonchi. Breathing is nonlabored. Abdomen: Soft, nontender, nondistended. Extremities: No left lower extremity edema. Right knee wound bandaged. Psych: Alert and oriented. Procedures 08/04/17 incision and drainage of abscess, right knee Urinary Catheter: No Vascular Central Line Catheter: No A/P Problem List: (1) Cellulitis and abscess of right lower extremity ICD Code: L03.115 - Cellulitis of right lower limb; L02.415 - Cutaneous abscess of right lower limb (2) Leukocytosis ICD Code: D72.829 - Elevated white blood cell count, unspecified (3) Rheumatoid arthritis Status: Chronic Assessment and Plan 1. Cellulitis/abscess, right knee: Status post incision and drainage in the ER. Wound culture is growing MRSA. Continue IV Vancomycin. Appreciate orthopedic surgery and infectious disease recommendations. 2. Leukocytosis: Likely secondary to infection, prednisone. Monitor labs. 3. Rheumatoid arthritis: Continue prednisone 5 mg daily. 4. DVT prophylaxis: SCDs. Discharge Planning When cleared by orthopedic surgery, infectious disease. Will likely need IV antibiotics as outpatient. Problem Qualifiers (1) Leukocytosis: Qualified Codes: D72.829 - Elevated white blood cell count, unspecified Kadeem Rodrigues MD Aug 06, 2017 14:58
[2017-08-06] MEDS: oxyCODONE/ACETAMINOPHEN 7.5 MG/325 MG TAB PO PRN ×2 (15:02→20:54)
[2017-08-06] MEDS: VANCOMYCIN INJ 900 MG in SODIUM CHLOR 0.9% 250 ML INJ 250 ML IV SCH (15:49)
[2017-08-06 16:04] VITALS: BP 110/69; PULSE 77; RESP 18; TEMP 98.9; O2SAT 98
[2017-08-06 20:40] VITALS: BP 122/79; PULSE 78; RESP 17; TEMP 98.2; O2SAT 99
[2017-08-07 00:30] VITALS: BP 122/75; PULSE 74; RESP 17; TEMP 98.5; O2SAT 100
[2017-08-07] MEDS: VANCOMYCIN INJ 900 MG in SODIUM CHLOR 0.9% 250 ML INJ 250 ML IV SCH ×2 (02:15→07:55)
[2017-08-07] MEDS: oxyCODONE/ACETAMINOPHEN 7.5 MG/325 MG TAB PO PRN ×4 (02:53→20:41)
[2017-08-07 04:32] VITALS: BP 103/67; PULSE 67; RESP 17; TEMP 98.3; O2SAT 100
--- NOTE | 2017-08-07 06:46 | PD.ORT.PN ---
Subjective Subjective Remarks s/p right knee pre-patellar abscess drainage doing well. pain improving. reports swelling improving Objective Vitals Vital Signs Date Time Temp Pulse Resp B/P (MAP) Pulse Ox O2 Delivery O2 Flow Rate FiO2 08/07/17 04:32 98.3 67 17 103/67 (79) 100 08/07/17 00:30 98.5 74 17 122/75 (91) 100 08/06/17 20:40 98.2 78 17 122/79 (93) 99 08/06/17 16:04 98.9 77 18 110/69 (83) 98 08/06/17 12:12 99.0 84 18 117/74 (88) 99 08/06/17 08:00 98.8 69 18 113/65 (81) 98 I/O 08/06/17 08/06/17 08/06/17 08/07/17 08/07/17 08/07/17 07:00 15:00 23:00 07:00 15:00 23:00 Intake Total 1200 ml 250 ml 610 ml Balance 1200 ml 250 ml 610 ml Intake Oral 1200 ml 360 ml IV Total 250 ml 250 ml # Voids 4 6 # Bowel Movements 0 Result Diagram: 08/05/17 1230 08/05/17 1230 Objective Remarks RLE: dressings clean and dry. intact. 1+ swelling of knee. motion of knee from 0 -90deg with no pain. nvi. Assessment & Plan Assessment and Plan 1) Right Knee Pre-Patellar Infectious Bursitis s/p drainage in ED -WBAT -daily dressing changes -as long as improving, will allow for Abx with nonop treatment -if patient develops significant onset of swelling and pain with inability to move knee, may consider I&D. however, at this point, will be nonsurgical -ortho cleared for DC Brody Blue/First Samantha GAMBINO Aug 07, 2017 06:46
[2017-08-07] MEDS: DOCUSATE SODIUM 50 MG/SENNA 8.6 MG TAB PO SCH ×2 (07:55→20:41)
[2017-08-07] MEDS: SODIUM CHLORIDE 0.9% FLUSH 10 ML FLUSH IV FLUSH SCH ×2 (07:56→20:41)
[2017-08-07 08:34] VITALS: BP 106/64; PULSE 63; RESP 18; TEMP 97.8; O2SAT 100
--- NOTE | 2017-08-07 12:40 | HHI.IDPN ---
Subjective Subjective Remarks Patient is a 27-year-old female, presented to the hospital for evaluation of worsening pain, swelling and drainage from her right knee. Patient has had previous infection with skin abscesses, and she also has had MRSA in the past. She has had abscesses in the right axilla as well as in the right buttock probably in the last year. Her problems started about 5 days prior to admission when she developed a pimple on her right knee. Patient also has known rheumatoid arthritis, and it usually involves both elbows and her right knee. She has on and off swelling in her right knee. When she developed a pimple on her right knee, she apparently popped it. She went to the emergency room on August 01 but signed out AGAINST MEDICAL ADVICE. Her right knee started getting more swollen, and she started having increased pain, redness and drainage on her right knee. She has not had any episode of fever or chills. She denies any other problem as far as respiratory, urinary, or GI complaints. Since admission she has had some low-grade temps of about 99.8. MRI of the right knee shows evidence of knee effusion, and evidence of cellulitis on the anterior knee, with no findings of fluid collection. Culture of the open wound is now reported as growing MRSA. Orthopedic consultation has been requested also. Patient states she has no problem in flexion and extension of her right knee. She states she developed the abscess, she stated that the swelling on her knee has increased. Her initial WBC was 17,000, and it's down to 13,000. Infectious disease consultation has been requested to make recommendation regarding the positive MRSA in the culture. Notes reviewed No fever Swelling same Pain better Putting weight on it Antibiotics Current Medications Vancomycin Medications (Trade) Dose Ordered Sig/Mulu Route Start Time Stop Time Status Last Admin (fentaNYL INJ) 25 mcg STAT PRN IV PUSH 08/04/17 06:30 08/04/17 06:41 (NS Flush) 2 ml UNSCH PRN IV FLUSH 08/04/17 10:15 08/06/17 11:43 (NS Flush) 2 ml BID IV FLUSH 08/04/17 21:00 08/07/17 07:56 (Tylenol) 650 mg Q4H PRN PO 08/04/17 10:15 08/07/17 11:16 (Zofran Inj) 4 mg Q6H PRN IVP 08/04/17 10:15 08/06/17 20:53 (Narcan Inj) 0.4 mg UNSCH PRN IV PUSH 08/04/17 10:15 (Misty-Colace) 1 tab BID PO 08/04/17 21:00 08/07/17 07:55 (Milk Of Magnesia Liq) 30 ml Q12H PRN PO 08/04/17 10:15 (Senokot) 17.2 mg Q12H PRN PO 08/04/17 10:15 (Dulcolax Supp) 10 mg DAILY PRN RECTAL 08/04/17 10:15 (Lactulose Liq) 30 ml DAILY PRN PO 08/04/17 10:15 Pharmacy Profile Note 0 ml @ 0 mls/hr UNSCH OTHER 08/04/17 10:15 (Percocet 7.5-325 Mg) 1 tab Q4H PRN PO 08/04/17 14:45 08/07/17 08:00 (Morphine Inj) 2 mg Q4H PRN IV PUSH 08/04/17 14:45 08/06/17 08:00 Vancomycin HCl 900 mg/Sodium Chloride 259 ml @ 250 mls/hr Q8H IV 08/06/17 16:00 08/07/17 07:55 Miscellaneous Information SPECIFIC LAB TO BE DRAWN:VANCOMY... ONCE ONCE .XX 08/07/17 15:45 08/07/17 15:46 Lines PIV Past Medical History Rheumatoid arthritis Psoriasis Past Surgical History D and C, diagnostic laparoscopy Allergies: Coded Allergies: *MDRO Multi-Drug Resistant Organism (Verified Adverse Reaction, Unknown, 05/28/17) MRSA (arm) 01/12/17 Objective . Vital Signs Date Time Temp Pulse Resp B/P (MAP) Pulse Ox O2 Delivery O2 Flow Rate FiO2 08/07/17 12:28 16 08/07/17 09:10 16 08/07/17 08:34 97.8 63 18 106/64 (78) 100 08/07/17 04:32 98.3 67 17 103/67 (79) 100 08/07/17 00:30 98.5 74 17 122/75 (91) 100 08/06/17 20:40 98.2 78 17 122/79 (93) 99 08/06/17 16:04 98.9 77 18 110/69 (83) 98 . Laboratory Tests Test 08/07/17 07:25 Total Creatine Kinase 28 U/L Imaging RADIOLOGY STUDIES/FILMS REVIEWED Knee MRI 08/05/17 0000 Signed Impressions: Service Date/Time: Saturday, August 05, 2017 13:19 - CONCLUSION: 1. Anterior skin irregularity/ulceration with associated soft tissue defect. No organized peripherally enhancing fluid collection. Surrounding ill-defined soft tissue enhancement suggests cellulitis in the proper clinical setting. No evidence of osteomyelitis. 2. Severe arthrosis of the right knee. Findings may represent primary osteoarthritis or secondary osteoarthritis with primary inflammatory arthritis. 3. Large joint effusion and nonspecific diffuse synovial enhancement. This finding can be seen with inflammatory arthritis or osteoarthritis. Tk Clark MD Physical Exam GENERAL: awake and alert, not in respiratory distress. SKIN: Warm and dry. No generalized rash HEAD: Atraumatic. Normocephalic. No temporal wasting, or tenderness. EYES: [place] conjunctiva. No petechia or hemorrhage. Pupils equal, round and reactive to light. Extraocular movements full and intact. No scleral icterus. No injection or drainage. EARS, NOSE AND THROAT: Nose without bleeding or purulent nasal discharge. No sinus tenderness. Mucous membranes pink and moist. No oral lesions noted. No oral thrush. NECK: Trachea midline. Supple and not tender, no meningeal signs CARDIOVASCULAR: Regular rate and rhythm. No murmurs, rubs or gallops heard RESPIRATORY: Clear to auscultation. Breath sounds equal bilaterally. No rales , wheezing or rhonchi ABDOMEN: Soft, flat, non-tender, nondistended. Bowel sounds present and normoactive. No guarding. No rebound. No organomegaly. EXTREMITIES: No clubbing, cyanosis. Has R knee has effusion, and she full ROM in her R knee joint, looks stable to slightly better. There is an open wound on her anterior knee that is about 1.5 cm with surrounding induration and erythema, improving, has blood mixed drainage. The prepatellar bursa is less edematous and less indurated. No calf tenderness. Well perfused and warm. Rest of joints with good ROM NEUROLOGICAL: Non-focal. PSYCHIATRIC: Normal affect, calm and cooperative. LINE: No evidence of infection Assessment & Plan Remarks IMPRESSION Septic prepatellar bursitis, C/S with MRSA Has R knee effusion, clinically does not look septic joint, likely inflammatory from her known RA Known RA on Rituxan 2 x a year, and chronic prednisone RECOMMENDATION Change IV vancomycin to Cubicin - difficult to use Q8H on D/C At least 2 weeks IV Abx on D/C PICC Monitor CPK while on Cubicin Monitor R knee - concern is development of septic knee Spoke with CM: check with insurance company regarding coverage, cost to patient Explained plan to the patient Annetta Lopez MD Aug 07, 2017 12:40
[2017-08-07 13:05] VITALS: BP 108/64; PULSE 63; RESP 18; TEMP 98.7; O2SAT 100
--- NOTE | 2017-08-07 13:41 | HHI.PR ---
Subjective Remarks Follow out septic prepatellar bursitis of right knee 08/07/17-patient seen and examined, reports improvement of right knee swollen and currently afebrile. Objective Vitals Vital Signs Date Time Temp Pulse Resp B/P (MAP) Pulse Ox O2 Delivery O2 Flow Rate FiO2 08/07/17 13:05 98.7 63 18 108/64 (79) 100 08/07/17 12:28 16 08/07/17 09:10 16 08/07/17 08:34 97.8 63 18 106/64 (78) 100 08/07/17 04:32 98.3 67 17 103/67 (79) 100 08/07/17 00:30 98.5 74 17 122/75 (91) 100 08/06/17 20:40 98.2 78 17 122/79 (93) 99 08/06/17 16:04 98.9 77 18 110/69 (83) 98 I/O 08/06/17 08/06/17 08/06/17 08/07/17 08/07/17 08/07/17 07:00 15:00 23:00 07:00 15:00 23:00 Intake Total 1200 ml 250 ml 610 ml Balance 1200 ml 250 ml 610 ml Intake Oral 1200 ml 360 ml IV Total 250 ml 250 ml # Voids 4 6 # Bowel Movements 0 Result Diagram: 08/05/17 1230 08/05/17 1230 Imaging Last Impressions Knee MRI 08/05/17 0000 Signed Impressions: Service Date/Time: Saturday, August 05, 2017 13:19 - CONCLUSION: 1. Anterior skin irregularity/ulceration with associated soft tissue defect. No organized peripherally enhancing fluid collection. Surrounding ill-defined soft tissue enhancement suggests cellulitis in the proper clinical setting. No evidence of osteomyelitis. 2. Severe arthrosis of the right knee. Findings may represent primary osteoarthritis or secondary osteoarthritis with primary inflammatory arthritis. 3. Large joint effusion and nonspecific diffuse synovial enhancement. This finding can be seen with inflammatory arthritis or osteoarthritis. Tk Clark MD Objective Remarks GENERAL: NAD SKIN: Warm and dry. HEAD: Normocephalic. EYES: No scleral icterus. No injection or drainage. NECK: Supple, trachea midline. No JVD or lymphadenopathy. CARDIOVASCULAR: Regular rate and rhythm without murmurs, gallops, or rubs. RESPIRATORY: Breath sounds equal bilaterally. No accessory muscle use. GASTROINTESTINAL: Abdomen soft, non-tender, nondistended. MUSCULOSKELETAL: No cyanosis, or edema. dressing over right knee BACK: Nontender without obvious deformity. No CVA tenderness. Procedures 08/04/17 incision and drainage of abscess, right knee A/P Problem List: (1) Prepatellar bursitis of right knee ICD Code: M70.41 - Prepatellar bursitis, right knee (2) Abscess of prepatellar region ICD Code: L02.419 - Cutaneous abscess of limb, unspecified (3) Cellulitis and abscess of right lower extremity ICD Code: L03.115 - Cellulitis of right lower limb; L02.415 - Cutaneous abscess of right lower limb (4) Leukocytosis ICD Code: D72.829 - Elevated white blood cell count, unspecified (5) Rheumatoid arthritis Status: Chronic Assessment and Plan 27-year-old female with Septic prepatellar bursitis of right knee s/p post I&D in ED Wound culture positive for MRSA Currently on vancomycin however will switch to Cubicin per ID PICC ordered as patient will require at least 2 weeks of IV antibiotics post discharge Continue with current wound care Leukocytosis Likely secondary to infection, prednisone. Monitor labs. Rheumatoid arthritis Continue prednisone 5 mg daily. 4. DVT prophylaxis: SCDs. Problem Qualifiers (1) Leukocytosis: Qualified Codes: D72.829 - Elevated white blood cell count, unspecified Delfino Richter MD Aug 07, 2017 13:41
[2017-08-07] MEDS: DAPTOmycin INJ 250 MG in SODIUM CHLORIDE 0.9% INJ 100 ML IV SCH (14:56)
[2017-08-07] MEDS ORDERED: PHARMACY ORDERED LAB ONE (15:45)
[2017-08-07 15:53] VITALS: BP 129/77; PULSE 59; RESP 18; TEMP 97.9; O2SAT 99
[2017-08-07] MEDS: MORPHINE SULFATE 2 MG/ML INJ IV PUSH PRN (18:11)
[2017-08-07 20:00] VITALS: BP 120/77; PULSE 68; RESP 17; TEMP 97.9; O2SAT 99
[2017-08-08 00:07] VITALS: BP 102/58; PULSE 73; RESP 17; TEMP 97.8; O2SAT 100
[2017-08-08] MEDS: SODIUM CHLORIDE 0.9% FLUSH 10 ML FLUSH IV FLUSH PRN (00:31)
[2017-08-08] MEDS: MORPHINE SULFATE 2 MG/ML INJ IV PUSH PRN ×4 (00:31→18:01)
[2017-08-08] MEDS: oxyCODONE/ACETAMINOPHEN 7.5 MG/325 MG TAB PO PRN (04:32)
[2017-08-08 04:46] VITALS: BP 146/65; PULSE 81; RESP 17; TEMP 98.1; O2SAT 100
[2017-08-08 08:39] VITALS: BP 112/71; PULSE 75; RESP 18; TEMP 98.2; O2SAT 99
[2017-08-08] MEDS: DOCUSATE SODIUM 50 MG/SENNA 8.6 MG TAB PO SCH ×2 (09:00→21:00)
[2017-08-08] MEDS: SODIUM CHLORIDE 0.9% FLUSH 10 ML FLUSH IV FLUSH SCH ×2 (09:33→21:59)
[2017-08-08 12:39] VITALS: BP 122/85; PULSE 83; RESP 18; TEMP 98.6; O2SAT 100
--- NOTE | 2017-08-08 13:27 | HHI.PR ---
Subjective Remarks Follow out septic prepatellar bursitis of right knee 08/07/17-patient seen and examined, reports improvement of right knee swollen and currently afebrile. 08/08/17-patient seen and examined, reports significant improvements of right knee pain. States now she is able to ambulate. currently afebrile Objective Vitals Vital Signs Date Time Temp Pulse Resp B/P (MAP) Pulse Ox O2 Delivery O2 Flow Rate FiO2 08/08/17 12:39 98.6 83 18 122/85 (97) 100 08/08/17 08:39 98.2 75 18 112/71 (85) 99 08/08/17 04:46 98.1 81 17 146/65 (92) 100 08/08/17 00:07 97.8 73 17 102/58 (73) 100 08/07/17 20:00 97.9 68 17 120/77 (91) 99 08/07/17 18:37 18 08/07/17 16:08 16 08/07/17 15:53 97.9 59 18 129/77 (94) 99 I/O 08/07/17 08/07/17 08/07/17 08/08/17 08/08/17 08/08/17 07:00 15:00 23:00 07:00 15:00 23:00 Intake Total 610 ml 240 ml 240 ml Balance 610 ml 240 ml 240 ml Intake Oral 360 ml 240 ml 240 ml IV Total 250 ml # Voids 6 4 4 # Bowel Movements 1 Result Diagram: 08/05/17 1230 08/05/17 1230 Imaging Last Impressions Knee MRI 08/05/17 0000 Signed Impressions: Service Date/Time: Saturday, August 05, 2017 13:19 - CONCLUSION: 1. Anterior skin irregularity/ulceration with associated soft tissue defect. No organized peripherally enhancing fluid collection. Surrounding ill-defined soft tissue enhancement suggests cellulitis in the proper clinical setting. No evidence of osteomyelitis. 2. Severe arthrosis of the right knee. Findings may represent primary osteoarthritis or secondary osteoarthritis with primary inflammatory arthritis. 3. Large joint effusion and nonspecific diffuse synovial enhancement. This finding can be seen with inflammatory arthritis or osteoarthritis. Tk Clark MD Objective Remarks GENERAL: NAD SKIN: Warm and dry. HEAD: Normocephalic. EYES: No scleral icterus. No injection or drainage. NECK: Supple, trachea midline. No JVD or lymphadenopathy. CARDIOVASCULAR: Regular rate and rhythm without murmurs, gallops, or rubs. RESPIRATORY: Breath sounds equal bilaterally. No accessory muscle use. GASTROINTESTINAL: Abdomen soft, non-tender, nondistended. MUSCULOSKELETAL: No cyanosis, or edema. dressing over right knee BACK: Nontender without obvious deformity. No CVA tenderness. Procedures 08/04/17 incision and drainage of abscess, right knee A/P Problem List: (1) Prepatellar bursitis of right knee ICD Code: M70.41 - Prepatellar bursitis, right knee (2) Abscess of prepatellar region ICD Code: L02.419 - Cutaneous abscess of limb, unspecified (3) Cellulitis and abscess of right lower extremity ICD Code: L03.115 - Cellulitis of right lower limb; L02.415 - Cutaneous abscess of right lower limb (4) Leukocytosis ICD Code: D72.829 - Elevated white blood cell count, unspecified (5) Rheumatoid arthritis Status: Chronic Assessment and Plan 27-year-old female with Septic prepatellar bursitis of right knee s/p post I&D in ED Wound culture positive for MRSA s/p vancomycin and now on Cubicin per ID PICC ordered as patient will require at least 2 weeks of IV antibiotics post discharge Continue with current wound care Leukocytosis Likely secondary to infection, prednisone. Monitor labs. Rheumatoid arthritis Continue prednisone 5 mg daily. 4. DVT prophylaxis: SCDs. Problem Qualifiers (1) Leukocytosis: Qualified Codes: D72.829 - Elevated white blood cell count, unspecified Delfino Richter MD Aug 08, 2017 13:27
[2017-08-08] MEDS: DAPTOmycin INJ 250 MG in SODIUM CHLORIDE 0.9% INJ 100 ML IV SCH (14:49)
--- NOTE | 2017-08-08 15:31 | HHI.FF ---
Infusion Therapy Location of Infusion Therapy: Home Health Care IV Infusion Order Patient Information Patient Weight 60 kg Diagnosis: Diagnosis MRSA septic R prepatellar bursitis Coded Allergies: *MDRO Multi-Drug Resistant Organism (Verified Adverse Reaction, Unknown, 05/28/17) MRSA (arm) 01/12/17 Administer Medication Daptomycin 250 mg IV q 24 hours Stop Treatment: Aug 22, 2017 Additional Information Venous access: PICC Line Additional Instructions [x] Peripheral flush and dressing changes per protocol [x] Implanted port and central bottling line attendant: * Implanted port: 10 ml Normal Saline followed by 5 ml Heparin 100 units/ml Heparin flush after each use and monthly to maintain. [] May leave port accessed during therapy. [] May leave peripheral site accessed for duration of therapy. [x] If patient has SOB or respiratory distress, check oxygen saturation. If less than 90% or clinical signs of respiratory distress, administer oxygen at 2 L/min. via nasal cannula and notify physician. [x] Anaphylaxis/Reaction orders: * Stop infusion. * Keep IV line open with saline flush. * Notify physician. * Monitor vital signs every 15 minutes until symptoms resolve. * Check Oxygen saturation; Oxygen at 2 L/min. via nasal cannula if less than 90% or clinical signs of respiratory distress. * Administer diphenhydramine (Benadryl) 25 mg IV STAT, (unless patient has received as pre-med). May repeat once, if necessary. * Solu-Cortef 250 mg IVP over 30-60 seconds, use 100 mg vials for each dissolution. * Epinephrine (1mg/1 ml) 0.3 mg subcutaneously or IVP now with any signs of respiratory distress. * Check with physician for new additional pre-med orders if patient is re- challenged or re-treated. [x] May remove PICC line when treatment complete, after confirming with Physician. [x] If the patient is admitted to the hospital, the ED, or transferred via [facility] , complete transfer form including medication reconciliation order sheet. Laboratory Tests Weekly Labs: CBC w/diff, Creatinine, Serum CK Levels (labs every Sunday - fax copy to me) Annetta Lopez MD Aug 08, 2017 15:31
[2017-08-08 16:21] VITALS: BP 118/84; PULSE 85; RESP 18; TEMP 99.2; O2SAT 97
[2017-08-08] MEDS ORDERED: ADULT - PICC FLUSH PRN FOR HEPARIN ALLERGY OR HIT DIAGNOSIS IV FLUSH ×2 (17:15)
--- NOTE | 2017-08-08 17:31 | RADRPT ---
EXAM DATE/TIME: 08/08/2017 17:05 [facility] COMPARISON: No previous studies available for comparison. INDICATIONS : Post PICC line placement. MEDICAL HISTORY : Rheumatoid arthritis. Psoriasis. SURGICAL HISTORY : None. ENCOUNTER: Initial ACUITY: 1 day PAIN SCORE: 0/10 LOCATION: Bilateral chest FINDINGS: A single view of the chest demonstrates the lungs to be symmetrically aerated without evidence of mas s, infiltrate or effusion. The cardiomediastinal contours are unremarkable. Osseous structures are intact. There is a right-sided PICC line in place with no pneumothorax. The tip is projected over the superior vena cava. CONCLUSION: PICC line in place. Sae Otero MD on August 08, 2017 at 17:26 Board Certified Radiologist. This report was verified electronically.
[2017-08-08 20:50] VITALS: BP 118/87; PULSE 97; RESP 17; TEMP 97.9; O2SAT 99
[2017-08-09] MEDS: oxyCODONE/ACETAMINOPHEN 7.5 MG/325 MG TAB PO PRN
[2017-08-09 00:43] VITALS: BP 112/66; PULSE 63; RESP 17; TEMP 98.1; O2SAT 99
[2017-08-09 05:06] VITALS: BP 108/61; PULSE 60; RESP 17; TEMP 98; O2SAT 100
[2017-08-09 08:00] VITALS: BP 116/68; PULSE 74; RESP 18; TEMP 98.2; O2SAT 99
[2017-08-09] MEDS: SODIUM CHLORIDE 0.9% FLUSH 10 ML FLUSH IV FLUSH SCH (08:52)
[2017-08-09] MEDS: DOCUSATE SODIUM 50 MG/SENNA 8.6 MG TAB PO SCH (08:53)
[2017-08-09] MEDS: MORPHINE SULFATE 2 MG/ML INJ IV PUSH PRN (08:54)
[2017-08-09] MEDS ORDERED: DAPT500P IV (10:40)
--- NOTE | 2017-08-09 10:44 | HHI.IDPN ---
Subjective Subjective Remarks Patient is a 27-year-old female, presented to the hospital for evaluation of worsening pain, swelling and drainage from her right knee. Patient has had previous infection with skin abscesses, and she also has had MRSA in the past. She has had abscesses in the right axilla as well as in the right buttock probably in the last year. Her problems started about 5 days prior to admission when she developed a pimple on her right knee. Patient also has known rheumatoid arthritis, and it usually involves both elbows and her right knee. She has on and off swelling in her right knee. When she developed a pimple on her right knee, she apparently popped it. She went to the emergency room on August 01 but signed out AGAINST MEDICAL ADVICE. Her right knee started getting more swollen, and she started having increased pain, redness and drainage on her right knee. She has not had any episode of fever or chills. She denies any other problem as far as respiratory, urinary, or GI complaints. Since admission she has had some low-grade temps of about 99.8. MRI of the right knee shows evidence of knee effusion, and evidence of cellulitis on the anterior knee, with no findings of fluid collection. Culture of the open wound is now reported as growing MRSA. Orthopedic consultation has been requested also. Patient states she has no problem in flexion and extension of her right knee. She states she developed the abscess, she stated that the swelling on her knee has increased. Her initial WBC was 17,000, and it's down to 13,000. Infectious disease consultation has been requested to make recommendation regarding the positive MRSA in the culture. Notes reviewed No fever Feeling better D/W CM - home IV Abx Rx has been set up, and confirmed with insurance company PICC in place Antibiotics Current Medications Cubicin Medications (Trade) Dose Ordered Sig/Mulu Route Start Time Stop Time Status Last Admin (fentaNYL INJ) 25 mcg STAT PRN IV PUSH 08/04/17 06:30 08/04/17 06:41 (NS Flush) 2 ml UNSCH PRN IV FLUSH 08/04/17 10:15 08/08/17 00:31 (NS Flush) 2 ml BID IV FLUSH 08/04/17 21:00 08/09/17 08:52 (Tylenol) 650 mg Q4H PRN PO 08/04/17 10:15 08/07/17 11:16 (Zofran Inj) 4 mg Q6H PRN IVP 08/04/17 10:15 08/06/17 20:53 (Narcan Inj) 0.4 mg UNSCH PRN IV PUSH 08/04/17 10:15 (Misty-Colace) 1 tab BID PO 08/04/17 21:00 08/07/17 07:55 (Milk Of Magnesia Liq) 30 ml Q12H PRN PO 08/04/17 10:15 (Senokot) 17.2 mg Q12H PRN PO 08/04/17 10:15 (Dulcolax Supp) 10 mg DAILY PRN RECTAL 08/04/17 10:15 (Lactulose Liq) 30 ml DAILY PRN PO 08/04/17 10:15 (Percocet 7.5-325 Mg) 1 tab Q4H PRN PO 08/04/17 14:45 08/09/17 00:00 (Morphine Inj) 2 mg Q4H PRN IV PUSH 08/04/17 14:45 08/09/17 08:54 Daptomycin 250 mg/ Sodium Chloride 100 ml @ 200 mls/hr Q24H IV 08/07/17 15:00 08/08/17 14:49 (Heparin Central Flush) See Protocol DAILY IV FLUSH 08/09/17 09:00 08/09/17 08:52 (Heparin Central Flush) See Protocol UNSCH PRN IV FLUSH 08/08/17 17:15 (NS Flush) UNSCH PRN IV FLUSH 08/08/17 17:15 (NS Flush) See Protocol UNSCH PRN IV FLUSH 08/08/17 17:15 (NS Flush) SEE PROTOCOL UNSCH PRN IV FLUSH 08/08/17 17:15 Lines PICC Past Medical History Rheumatoid arthritis Psoriasis Past Surgical History D and C, diagnostic laparoscopy Allergies: Coded Allergies: *MDRO Multi-Drug Resistant Organism (Verified Adverse Reaction, Unknown, 05/28/17) MRSA (arm) 01/12/17 Objective . Vital Signs Date Time Temp Pulse Resp B/P (MAP) Pulse Ox O2 Delivery O2 Flow Rate FiO2 08/09/17 08:00 98.2 74 18 116/68 (84) 99 08/09/17 05:06 98.0 60 17 108/61 (77) 100 08/09/17 00:43 98.1 63 17 112/66 (81) 99 08/08/17 20:50 97.9 97 17 118/87 (97) 99 08/08/17 16:21 99.2 85 18 118/84 (95) 97 08/08/17 12:39 98.6 83 18 122/85 (97) 100 Imaging RADIOLOGY STUDIES/FILMS REVIEWED Knee MRI 08/05/17 0000 Signed Impressions: Service Date/Time: Saturday, August 05, 2017 13:19 - CONCLUSION: 1. Anterior skin irregularity/ulceration with associated soft tissue defect. No organized peripherally enhancing fluid collection. Surrounding ill-defined soft tissue enhancement suggests cellulitis in the proper clinical setting. No evidence of osteomyelitis. 2. Severe arthrosis of the right knee. Findings may represent primary osteoarthritis or secondary osteoarthritis with primary inflammatory arthritis. 3. Large joint effusion and nonspecific diffuse synovial enhancement. This finding can be seen with inflammatory arthritis or osteoarthritis. Tk Clark MD Physical Exam GENERAL: awake and alert, NAD SKIN: Warm and dry. No generalized rash HEAD: Atraumatic. Normocephalic. No temporal wasting, or tenderness. EYES: [place] conjunctiva. No petechia or hemorrhage. Pupils equal, round and reactive to light. Extraocular movements full and intact. No scleral icterus. No injection or drainage. EARS, NOSE AND THROAT: Nose without bleeding or purulent nasal discharge. No sinus tenderness. Mucous membranes pink and moist. No oral lesions noted. No oral thrush. NECK: Trachea midline. Supple and not tender, no meningeal signs CARDIOVASCULAR: Regular rate and rhythm. No murmurs, rubs or gallops heard RESPIRATORY: Clear to auscultation. Breath sounds equal bilaterally. No rales , wheezing or rhonchi ABDOMEN: Soft, flat, non-tender, nondistended. Bowel sounds present and normoactive. No guarding. No rebound. No organomegaly. EXTREMITIES: No clubbing, cyanosis. Has R knee has effusion looks better, and she full ROM in her R knee joint. There is an open wound on her anterior knee that is about 1.5 cm with surrounding induration and erythema, improving, has blood mixed drainage. The prepatellar bursa is less edematous and less indurated. No calf tenderness. NEUROLOGICAL: Non-focal. PSYCHIATRIC: Normal affect, calm and cooperative. LINE: No evidence of infection Assessment & Plan Remarks IMPRESSION Septic prepatellar bursitis, C/S with MRSA Has R knee effusion, clinically does not look septic joint, likely inflammatory from her known RA Known RA on Rituxan 2 x a year, and chronic prednisone RECOMMENDATION Continue Cubicin - to complete 14 days Rx I filled out Abx infusion form To have lab done CBC, creat and CPK while on IV Cubicin OK to D/C today Explained plan to patient Spoke with RN Spoke with Annetta Caraballo MD Aug 09, 2017 10:44
--- NOTE | 2017-08-09 11:16 | HHI.PR ---
Subjective Remarks Follow out septic prepatellar bursitis of right knee 08/07/17-patient seen and examined, reports improvement of right knee swollen and currently afebrile. 08/08/17-patient seen and examined, reports significant improvements of right knee pain. States now she is able to ambulate. currently afebrile 08/09/17-patient seen and examined, states she is ambulating more and more without significant pain to right knee. Currently afebrile. Case discussed with ID specialist. PICC line yesterday Objective Vitals Vital Signs Date Time Temp Pulse Resp B/P (MAP) Pulse Ox O2 Delivery O2 Flow Rate FiO2 08/09/17 08:00 98.2 74 18 116/68 (84) 99 08/09/17 05:06 98.0 60 17 108/61 (77) 100 08/09/17 00:43 98.1 63 17 112/66 (81) 99 08/08/17 20:50 97.9 97 17 118/87 (97) 99 08/08/17 16:21 99.2 85 18 118/84 (95) 97 08/08/17 12:39 98.6 83 18 122/85 (97) 100 I/O 08/08/17 08/08/17 08/08/17 08/09/17 08/09/17 08/09/17 07:00 15:00 23:00 07:00 15:00 23:00 Intake Total 240 ml 480 ml 360 ml Balance 240 ml 480 ml 360 ml Intake Oral 240 ml 480 ml 360 ml # Voids 4 6 5 # Bowel Movements 1 Result Diagram: 08/05/17 1230 08/05/17 1230 Imaging Last Impressions Chest X-Ray 08/08/17 0000 Signed Impressions: Service Date/Time: Tuesday, August 08, 2017 17:05 - CONCLUSION: PICC line in place. Sae Otero MD Knee MRI 08/05/17 0000 Signed Impressions: Service Date/Time: Saturday, August 05, 2017 13:19 - CONCLUSION: 1. Anterior skin irregularity/ulceration with associated soft tissue defect. No organized peripherally enhancing fluid collection. Surrounding ill-defined soft tissue enhancement suggests cellulitis in the proper clinical setting. No evidence of osteomyelitis. 2. Severe arthrosis of the right knee. Findings may represent primary osteoarthritis or secondary osteoarthritis with primary inflammatory arthritis. 3. Large joint effusion and nonspecific diffuse synovial enhancement. This finding can be seen with inflammatory arthritis or osteoarthritis. Tk Clark MD Objective Remarks GENERAL: NAD SKIN: Warm and dry. HEAD: Normocephalic. EYES: No scleral icterus. No injection or drainage. NECK: Supple, trachea midline. No JVD or lymphadenopathy. CARDIOVASCULAR: Regular rate and rhythm without murmurs, gallops, or rubs. RESPIRATORY: Breath sounds equal bilaterally. No accessory muscle use. GASTROINTESTINAL: Abdomen soft, non-tender, nondistended. MUSCULOSKELETAL: No cyanosis, or edema.PICC in right forearm. dressing over right knee BACK: Nontender without obvious deformity. No CVA tenderness. Procedures 08/04/17 incision and drainage of abscess, right knee A/P Problem List: (1) Prepatellar bursitis of right knee ICD Code: M70.41 - Prepatellar bursitis, right knee (2) Abscess of prepatellar region ICD Code: L02.419 - Cutaneous abscess of limb, unspecified (3) Cellulitis and abscess of right lower extremity ICD Code: L03.115 - Cellulitis of right lower limb; L02.415 - Cutaneous abscess of right lower limb (4) Leukocytosis ICD Code: D72.829 - Elevated white blood cell count, unspecified (5) Rheumatoid arthritis Status: Chronic Assessment and Plan 27-year-old female with Septic prepatellar bursitis of right knee s/p post I&D in ED Wound culture positive for MRSA s/p vancomycin and now on Cubicin per ID PICC placed as patient will require at least 2 weeks of IV antibiotics post discharge Continue with current wound care Leukocytosis Likely secondary to infection, prednisone. Monitor labs. Rheumatoid arthritis Continue prednisone 5 mg daily. 4. DVT prophylaxis: SCDs. Problem Qualifiers (1) Leukocytosis: Qualified Codes: D72.829 - Elevated white blood cell count, unspecified Delfino Richter MD Aug 09, 2017 11:16
--- NOTE | 2017-08-09 11:19 | HHI.DS ---
Discharge Summary Admission Date Aug 04, 2017 at 08:16 Discharge Date: Aug 09, 2017 Admitting Diagnosis right knee abscess/cellulitis (1) Prepatellar bursitis of right knee ICD Code: M70.41 - Prepatellar bursitis, right knee (2) Abscess of prepatellar region ICD Code: L02.419 - Cutaneous abscess of limb, unspecified (3) Cellulitis and abscess of right lower extremity ICD Code: L03.115 - Cellulitis of right lower limb; L02.415 - Cutaneous abscess of right lower limb (4) Leukocytosis ICD Code: D72.829 - Elevated white blood cell count, unspecified (5) Rheumatoid arthritis Status: Chronic Procedures 08/04/17 incision and drainage of abscess, right knee Brief History - From Admission Deferred entry - patient seen at 12:20 am This is a 27-year-old female with past medical history of rheumatoid arthritis and psoriasis currently on Rituxan twice a year and chronic prednisone who presented to [facility] complaining of right knee pain and swelling as well as warmth which started approximately 1 week ago. Patient states that initially she had a small pimple which started growing and becoming painful as well as warmth. The patient's states that she started noticing drainage of a thick secretion which initially was bloody. The patient states the pain in the right knee as throbbing and continuous, nonradiating, worsened by palpation and by moving the joint. The patient was in the emergency department and found to have an abscess in the right knee which was incised and drained by the emergency physician. The patient denies any fevers or chills, nausea, vomiting , abdominal pain CBC/BMP: 08/05/17 1230 08/05/17 1230 Significant Findings Laboratory Tests Test 08/07/17 07:25 Imaging Last Impressions Chest X-Ray 08/08/17 0000 Signed Impressions: Service Date/Time: Tuesday, August 08, 2017 17:05 - CONCLUSION: PICC line in place. Sae Otero MD Knee MRI 08/05/17 0000 Signed Impressions: Service Date/Time: Saturday, August 05, 2017 13:19 - CONCLUSION: 1. Anterior skin irregularity/ulceration with associated soft tissue defect. No organized peripherally enhancing fluid collection. Surrounding ill-defined soft tissue enhancement suggests cellulitis in the proper clinical setting. No evidence of osteomyelitis. 2. Severe arthrosis of the right knee. Findings may represent primary osteoarthritis or secondary osteoarthritis with primary inflammatory arthritis. 3. Large joint effusion and nonspecific diffuse synovial enhancement. This finding can be seen with inflammatory arthritis or osteoarthritis. Tk Clark MD PE at Discharge GENERAL: NAD SKIN: Warm and dry. HEAD: Normocephalic. EYES: No scleral icterus. No injection or drainage. NECK: Supple, trachea midline. No JVD or lymphadenopathy. CARDIOVASCULAR: Regular rate and rhythm without murmurs, gallops, or rubs. RESPIRATORY: Breath sounds equal bilaterally. No accessory muscle use. GASTROINTESTINAL: Abdomen soft, non-tender, nondistended. MUSCULOSKELETAL: No cyanosis, or edema.PICC in right forearm. dressing over right knee BACK: Nontender without obvious deformity. No CVA tenderness. Hospital Course While in the hospital, patient was treated for: Septic prepatellar bursitis of right knee s/p post I&D in ED Wound culture positive for MRSA s/p vancomycin and started on Cubicin per ID specialist PICC placed as patient will require at least 2 weeks of IV antibiotics post discharge Wound care was provided Leukocytosis Likely secondary to infection, prednisone. Monitor labs. Rheumatoid arthritis She was continued on her own prednisone 5 mg daily. 4. DVT prophylaxis: SCDs. Pt Condition on Discharge: Good Discharge Disposition: Disch w/ Home Health Serv Discharge Time: > 30 minutes Discharge Instructions DIET: Follow Instructions for: As Tolerated, No Restrictions Activities you can perform: Regular-No Restrictions Follow up Referrals: PCP Follow-up - 1 Week PCP Follow-up - 1 Week New Medications: Daptomycin Inj (Cubicin Inj) 500 Mg Bag 250 MG IV Q24H for Infection for 14 Days, #14 BAG 0 Refills Must dilute in appropriate IV Fluid prior to administration Continued Medications: Prednisone (Prednisone) 10 Mg Tab 5 MG PO DAILY, TAB 0 Refills Delfino Richter MD Aug 09, 2017 11:19
--- NOTE | 2017-08-09 11:29 | HHI.FF ---
Face to Face Verification Diagnosis: (1) Cellulitis and abscess of right lower extremity (2) Abscess of prepatellar region (3) Prepatellar bursitis of right knee (4) Rheumatoid arthritis Home Health Nursing Order: IV medication administration I have seen patient Olivia Ochoa on 08/09/17. My clinical findings support the need for the requested home health care services because: Injectable med education/admin I certify that my clinical findings support that this patient is homebound because: Poor cardiac reserve Delfino Richter MD Aug 09, 2017 11:29
== END 2017-08-09 13:13 | disposition home health service (06) | DRG 558 ==
LOC: NEPD 05:57 → NEDA 08:16 → N05A 15:41
PROVIDERS: ADMIT Hospitalist; ATTEND Hospitalist
PROC: 0J9N3ZX Drainage of Right Lower Leg Subcutaneous Tissue and Fascia, Percutaneous Approach, Diagnostic (ICD-10-PCS; principal; 2017-08-04)
PROC: 05HY33Z Insertion of Infusion Device into Upper Vein, Percutaneous Approach (ICD-10-PCS; 2017-08-08)
DX: M71.161 Other infective bursitis, right knee (principal); L02.415 Cutaneous abscess of right lower limb; L03.115 Cellulitis of right lower limb; B95.62 Methicillin resistant Staphylococcus aureus infection as the cause of diseases classified elsewhere; L40.9 Psoriasis, unspecified; M06.9 Rheumatoid arthritis, unspecified; M25.461 Effusion, right knee; Z79.899 Other long term (current) drug therapy; Z79.52 Long term (current) use of systemic steroids; Z86.14 Personal history of Methicillin resistant Staphylococcus aureus infection; L08.9 Local infection of the skin and subcutaneous tissue, unspecified
CPT/HCPCS: 10061; 36569; 71045; 73723; 76937; 80048; 80053; 80202; 82550; 84702; 85025; 86403; 87040; 87070; 87147; 87186; 96365; 96375; 99281; A9579; J0878; J1642; J2270; J2405; J2543; J3010; J3370; J7050